=== PATIENT | female | born 1955 | race Caucasian/White ===

== ENCOUNTER 2020-11-01 10:45 | Outpatient (CLI) | payer OTHER, SELFPAY ==
[2020-11-01 11:08] LABS: Basophils Percent Auto 0.7 % (0.2-1.2); Eosinophils Absolute Auto 0.2 K/mm3 (0-0.3); Eosinophils Percent Auto 3.7 % (0-4.4); Hematocrit 40.9 % (37.0-47.0); Hemoglobin 13.2 g/dL (12.0-15.0); Immature Granulocyte Absolute 0.01 K/mm3 (0.00-0.031); Immature Granulocyte Percent A 0.2 % (0-0.5); Lymphocytes Absolute Auto 1.43 K/mm3 (0.9-3.2); Lymphocytes Percent Auto 32.9 % (18.3-44.2); Mean Corpuscular HGB Conc 32.3 g/dl (32-36); Mean Corpuscular Hemoglobin 29.7 pg (26-34); Mean Corpuscular Volume 91.9 fl (80-100); Mean Platelet Volume 10.6 fl (7.4-10.4); Monocytes Absolute Auto 0.4 K/mm3 (0.1-0.6); Monocytes Percent Auto 8.7 % (2.6-8.5); Neutrophils Absolute Auto 2.3 K/mm3 (1.3-6.7); Neutrophils Percent Auto 53.8 % (45.5-73.1); Platelet Count Result 232 k/mm3 (150-375); Red Blood Count 4.45 M/mm3 (4.2-5.4); Red Cell Distribution Width 13.6 % (11.5-14.5); White Blood Count 4.4 K/mm3 (4.5-10.0)
[2020-11-01 11:14] LABS: Alanine Aminotransferase 26 U/L (4-35); Albumin Level 4.5 g/dL (3.5-5.1); Alkaline Phosphatase 82 U/L (38-126); Anion Gap 6 mmol/L (8-16); Aspartate Amino Transferase 38 U/L (14-36); Bilirubin,Total 0.5 mg/dL (0.2-1.3); Blood Urea Nitrogen 13 mg/dL (7-17); Calcium 9.3 mg/dL (8.4-10.2); Carbon Dioxide 28 mmol/L (22-30); Chloride 106 mmol/L (98-107); Estimated Glomerular Filt Rate > 60; Glucose 96 mg/dL (65-105); Potassium 4.2 mmol/L (3.4-5.0); Sodium 140 mmol/L (137-145)
== END 2020-11-01 10:46 | disposition home or self-care (01) ==
LOC: ANHLAB 10:47
PROVIDERS: PCP Family Medicine; Visit Provider Internal Medicine Gastroenterology
DX: R11.0 Nausea (principal)
CPT/HCPCS: 36415; 80053; 85025

== ENCOUNTER 2020-12-31 01:00 | Day surgery (SDC) | payer OTHER, SELFPAY ==
[2020-12-18 14:08] VITALS: BMI 29.3
[2020-12-31 09:06] VITALS: BP 142/58; PULSE 66; RESP 18; TEMP 36.2; O2SAT 96; BMI 29.5
[2020-12-31] MEDS: LACTATED RINGERS 1,000 ML 150 ML IV CONT (09:27)
--- NOTE | 2020-12-31 09:36 | WPDGICN ---
Assessment and Plan Assessment and plan (1) Nausea without vomiting: Code(s): R11.0 - Nausea Status: Acute Assessment and Plan: patient with nausea of uncertain etiology. Differential is broad. Plan is for patient to continue bland diet EGD will be performed further recommendations will be given after endoscopy. Continue trial of omeprazole until this is accomplished further recommendations will be given after endoscopy. GI Consult Note Consult date/time: 12/31/20 09:36 HPI: Reny Bolanos is a 65 year old female Presents for EGD. Patient has a history of nausea intermittently over last several months. No specific aggravating or alleviating factors have been identified. She states that is improved since being seen in the office 2 months ago. She currently is maintained on a bland diet. She does have a distant history of valvular heart disease for which she is on warfarin anticoagulation. Family history is noncontributory. Review of Systems Review of Systems: All systems reviewed & are unremarkable except as noted in HPI and below PMFSH Past Medical History Medical History (Updated 11/01/20 @ 10:24 by Riley Pardo MD) Warfarin anticoagulation Surgical History Surgical History Bioprosthetic aortic valve replacement during current hospitalization Social History Social History (Updated 11/01/20 @ 10:01 by Reny Sagastume CMA) Smoking status: Never smoker Alcohol intake: never Substance use: never Substance use type: does not use Living arrangements: with family Gender identity (if verbalized by the patient): Female Spiritual care concerns: No Meds Home Medications and Allergies Home Medications Medication Instructions Recorded Confirmed Type metoprolol succinate 50 mg PO DAILY 03/03/19 12/31/20 History warfarin [Coumadin] 6 mg PO DAILY 03/03/19 12/18/20 History omeprazole 20 mg capsule,delayed 20 mg PO DAILY 11/01/20 12/18/20 History release cholecalciferol (vitamin D3) 25 mcg PO DAILY 12/18/20 12/18/20 History warfarin 3 mg PO WEEKLY 12/18/20 12/18/20 History Allergies Allergy/AdvReac Type Severity Reaction Status Date / Time Penicillins Allergy Rash Verified 12/31/20 09:04 erythromycin base AdvReac Nausea Verified 12/31/20 09:04 propofol AdvReac Chills Verified 12/31/20 09:04 Vital Signs Vital Signs - 24 hr 12/31/20 09:06 Temperature 97.1 F L Pulse Rate 66 Respiratory Rate 18 Blood Pressure 142/58 H Pulse Oximetry 96 Exam Narrative: Physical exam reveals patient be alert. Vital signs stable. HEENT exam is unremarkable. Patient is anicteric. Lungs are clear to auscultation and percussion. Heart is without murmur or extra sounds. Abdominal exam bowel sounds are present soft nontender with no organomegaly.
--- NOTE | 2020-12-31 10:05 | WPDANESEPPF ---
Anes - Initial Pre Proc Eval Procedure: Operation Date: 12/31/20 10:00 Proposed Procedures p Esophagogastroduodenoscopy - Riley Pardo MD Date/Time: 12/31/20 10:05 Surgeon: Riley Pardo MD Pre Op Diagnosis: nausea r11.0 Patient Data Age: 65 Gender: F Height: 1.52 m Weight: 68.6 kg Last Vital Signs Temp 97.1 F L 12/31/20 09:06 Pulse 66 12/31/20 09:06 Resp 18 12/31/20 09:06 BP 142/58 H 12/31/20 09:06 Pulse Ox 96 12/31/20 09:06 Allergies Allergy/AdvReac Type Severity Reaction Status Date / Time Penicillins Allergy Rash Verified 12/31/20 09:04 erythromycin base AdvReac Nausea Verified 12/31/20 09:04 propofol AdvReac Chills Verified 12/31/20 09:04 Home Medications Medication Instructions Recorded Confirmed Type metoprolol succinate 50 mg PO DAILY 03/03/19 12/31/20 History warfarin [Coumadin] 6 mg PO DAILY 03/03/19 12/18/20 History omeprazole 20 mg capsule,delayed 20 mg PO DAILY 11/01/20 12/18/20 History release cholecalciferol (vitamin D3) 25 mcg PO DAILY 12/18/20 12/18/20 History warfarin 3 mg PO WEEKLY 12/18/20 12/18/20 History Laboratory Tests 12/31/20 09:25 PT 13.0 Seconds Seconds (11.1-14.7) INR 1.0 Patient hx anesthesia problems: none Family hx anesthesia problems: none PMFSH Past Medical History Medical History (Updated 12/31/20 @ 10:06 by Ham Ramsey MD) Arthritis Pacemaker Warfarin anticoagulation Surgical History Surgical History (Updated 12/31/20 @ 10:06 by Ham Ramsey MD) Bioprosthetic aortic valve replacement during current hospitalization S/P AVR (aortic valve replacement) Social History Social History (Updated 11/01/20 @ 10:01 by Reny Sagastume CMA) Smoking status: Never smoker Alcohol intake: never Substance use: never Substance use type: does not use Living arrangements: with family Gender identity (if verbalized by the patient): Female Spiritual care concerns: No Anes - Eval Final PreProcedure Day of Procedure 12/31/20 10:05 Patient weight: overweight Heart: regular rate and rhythm Lungs: clear to auscultation Airway: Mallampati scale class III Neurological: alert and oriented Last oral intake: >/= 8 hours ASA classification: III Emergent: no Anesthetic plan: proceed Anesthesia type and monitoring: general GIVS and standard monitoring Informed Consent: The patient's anesthetic plan and its attendant risks and benefits were discussed with the patient/family/POA. Questions were solicited and answers provided to the satisfaction of the patient/family/POA.
[2020-12-31 10:32] VITALS: BP 101/48; PULSE 65; RESP 17; O2SAT 100
[2020-12-31 10:42] VITALS: BP 115/49; PULSE 66; RESP 17; O2SAT 100
[2020-12-31 10:52] VITALS: BP 126/98; PULSE 69; RESP 22; O2SAT 100
== END 2020-12-31 11:04 | disposition home or self-care (01) ==
PROVIDERS: PCP Family Medicine; Visit Provider Internal Medicine Gastroenterology
PROC: 0DJ08ZZ Inspection of Upper Intestinal Tract, Via Natural or Artificial Opening Endoscopic (ICD-10-PCS; CPT 43235; principal; 2020-12-31 10:00)
DX: R11.0 Nausea (principal); Z79.01 Long term (current) use of anticoagulants; M19.90 Unspecified osteoarthritis, unspecified site; Z95.0 Presence of cardiac pacemaker; Z95.2 Presence of prosthetic heart valve
CPT/HCPCS: 43239; 36415; 85610; 87081; J2704; J3370; J7120

== ENCOUNTER 2021-03-03 08:02 | Outpatient (CLI) | payer OTHER, SELFPAY ==
--- NOTE | ~2021-03-03 | NM_ITS ---
EXAMINATION: NM hepatobiliary wo pharm EXAM DATE: 03/03/2021 13:56 INDICATION: RUQ pain TECHNIQUE: 4.5 mCi Tc-99m mebrofenin (Choletec) was administered intravenously. Scintigraphic images of the abdomen were obtained for one hour. To obtained gallbladder ejection fraction, patient drank 8 ounces of Ensure and imaging of the gallbladder obtained for one hour following ingestion. Gallbl adder ejection fraction was calculated by the technologist. There is no prior study for comparison. FINDINGS: There is normal clearance of radiotracer from the blood pool. There is homogeneous tracer u ptake by the liver. Activity progresses to the gallbladder and bowel. The gallbladder ejection fract ion (GBEF) is 74% (most patients with gallbladder dysfunction have GBEF < 35%, but there is slight ov erlap with the normal range of 33-90% using this protocol).] IMPRESSION: Gallbladder ejection fraction 74%, within normal range. Reviewed, dictated and finalized at location A.
== END 2021-03-03 08:03 | disposition home or self-care (01) ==
PROVIDERS: PCP Family Medicine; Visit Provider Family Medicine
DX: R10.11 Right upper quadrant pain (principal)
CPT/HCPCS: 78226; A9537

== ENCOUNTER 2022-02-18 13:07 | Outpatient (CLI) | payer OTHER, SELFPAY ==
--- NOTE | ~2022-02-18 | XR_ITS ---
EXAMINATION: XR lumbar spine min 4V DATE: 02/18/2022 13:39 INDICATION: Low back pain TECHNIQUE: Anteroposterior, lateral, and bilateral oblique views of the lumbar spine, and cone-down l ateral view of the lumbosacral junction were obtained. COMPARISON: None. FINDINGS: There are 3 mm of anterolisthesis of L4 on L5 and 2 mm of retrolisthesis of L5 on S1. There is moderate loss of intervertebral disc space height at L4-5 and mild loss of disc space height thro ughout the remainder of the lumbar spine. The vertebral body heights are maintained. Small degenerati ve osteophytes project from the anterior endplates of multiple vertebral bodies. There is moderate to severe facet joint osteoarthritis in the lower lumbar spine. IMPRESSION: 1. Mild to moderate lumbar spondylosis without acute findings. Reviewed, dictated and finalized at location A.
--- NOTE | ~2022-02-18 | XR_ITS ---
EXAMINATION: XR hip RT min 2V DATE: 02/18/2022 13:39 INDICATION: Right groin pain TECHNIQUE: Two views of right hip were obtained. COMPARISON: None. FINDINGS: Bone alignment is normal. There is no fracture. The soft tissues are unremarkable. IMPRESSION: 1. No acute osseous abnormality. Reviewed, dictated and finalized at location A.
== END 2022-02-18 13:08 | disposition home or self-care (01) ==
PROVIDERS: PCP Family Medicine; Visit Provider Chiropractor
DX: M54.50 Low back pain, unspecified (principal); M47.816 Spondylosis without myelopathy or radiculopathy, lumbar region
CPT/HCPCS: 72110; 73502

== ENCOUNTER → 2022-07-29 11:12 | Outpatient (CLI) | payer OTHER, SELFPAY ==
--- NOTE | ~2022-07-29 | MMUS_ITS ---
EXAMINATION: MM diagnostic jillian BI w ana laura, US axilla LT HISTORY: Palpable left breast abnormality. TECHNIQUE: Additional 3-D tomosynthesis images of the breasts were performed and synthetic 2-D images were generated. CAD analysis was submitted and interpreted. High resolution left axillary ultrasound was performed. COMPARISON: 07/29/2022 BREAST PARENCHYMAL COMPOSITION: Breast composition is almost entirely fatty FINDINGS: MAMMOGRAPHIC FINDINGS: There are no suspicious masses, calcifications or architectural distortion in either breast to sugges t malignancy. ULTRASOUND: Left axillary ultrasound: In the area of palpable concern near the axilla there is a normal-appearing 9 mm intramammary lymph node with normal echogenic hilum. No suspicious masses to suggest malignancy . IMPRESSION: 1. No evidence for malignancy in either breast. Benign finding. 2. Routine yearly screening mammogram and regular clinical breast examination are recommended. BI-RADS Category 2: Benign finding(s). Reviewed, dictated and finalized at location A. IMPRESSION: 1. No evidence for malignancy in either breast. Benign finding. 2. Routine yearly screening mammogram and regular clinical breast examination a re recommended. BI-RADS Category 2: Benign finding(s).
== END ==
PROVIDERS: PCP Internal Medicine; Visit Provider Nurse Practitioner
DX: R22.30 Localized swelling, mass and lump, unspecified upper limb (principal)
CPT/HCPCS: 76882; 77062; 77066; G0279

== ENCOUNTER 2022-10-30 00:13 | Day surgery (SDC) | payer OTHER, SELFPAY ==
[2022-10-29 15:00] VITALS: BMI 29.2
[2022-10-30] VITALS (8 sets, daily range): BP systolic 92–113; BP diastolic 53–66; PULSE 60–66; RESP 13–18; TEMP 36.7; O2SAT 95–100; BMI 28.8
[2022-10-30 07:52] LABS: Basophils Absolute Auto 0.1 K/mm3 (0.0-0.1); Basophils Percent Auto 1.1 % (0.2-1.2); Eosinophils Absolute Auto 0.2 K/mm3 (0-0.3); Eosinophils Percent Auto 3.9 % (0-4.4); Hematocrit 40.7 % (37.0-47.0); Hemoglobin 13.4 g/dL (12.0-15.0); Immature Granulocyte Absolute 0.01 K/mm3 (0.00-0.031); Immature Granulocyte Percent A 0.2 % (0-0.5); Lymphocytes Absolute Auto 1.38 K/mm3 (0.9-3.2); Lymphocytes Percent Auto 29.6 % (18.3-44.2); Mean Corpuscular HGB Conc 32.9 g/dl (32-36); Mean Corpuscular Hemoglobin 30.4 pg (26-34); Mean Corpuscular Volume 92.3 fl (80-100); Mean Platelet Volume 10.3 fl (7.4-10.4); Monocytes Absolute Auto 0.5 K/mm3 (0.1-0.6); Monocytes Percent Auto 10.9 % (2.6-8.5); Neutrophils Absolute Auto 2.5 K/mm3 (1.3-6.7); Neutrophils Percent Auto 54.3 % (45.5-73.1); Platelet Count Result 218 k/mm3 (150-375); Red Blood Count 4.41 M/mm3 (4.2-5.4); Red Cell Distribution Width 13.6 % (11.5-14.5); White Blood Count 4.7 K/mm3 (4.5-10.0)
[2022-10-30 08:02] LABS: Prothrombin Time 13.2 Seconds (11.1-14.7)
[2022-10-30 08:03] LABS: Anion Gap 3 mmol/L (8-16); Blood Urea Nitrogen 18 mg/dL (7-17); Carbon Dioxide 31 mmol/L (22-30); Chloride 105 mmol/L (98-107); Estimated CRCL calculation 46 ml/min; Estimated Glomerular Filt Rate > 60; Glucose 96 mg/dL (65-110); Potassium 3.8 mmol/L (3.4-5.0); Sodium 139 mmol/L (137-145)
--- NOTE | 2022-10-30 09:32 | WPDMODSED ---
Moderate Sedation Note-Pt Data Patient Data Diagnosis: Sick sinus syndrome, permanent pacemaker at [facility] previous aortic valve replacement Present Complaint: no complaints Procedure to be performed/Plan: pacemaker generator change Allergies Allergy/AdvReac Type Severity Reaction Status Date / Time Penicillins Allergy Rash Verified 10/29/22 15:19 codeine AdvReac Hallucinati Verified 10/29/22 15:19 [From Tylenol-Codeine #3] ng erythromycin base AdvReac Nausea Verified 10/29/22 15:19 oxycodone [From Percocet] AdvReac Hallucinati Verified 10/29/22 15:19 ng propofol AdvReac Chills Verified 10/29/22 15:19 MOST PAIN MEDS Allergy Hallucinati Uncoded 10/29/22 15:19 ng Home Medications Medication Instructions Recorded Confirmed Type metoprolol succinate 50 mg 50 mg PO DAILY 03/03/19 10/29/22 History tablet,extended release 24 hr warfarin 6 mg tablet (Coumadin) 6 mg PO DAILY 03/03/19 10/29/22 History cholecalciferol (vitamin D3) 25 25 mcg PO DAILY 12/18/20 10/29/22 History mcg (1,000 unit) capsule warfarin 3 mg tablet 3 mg PO WEEKLY 12/18/20 10/29/22 History atorvastatin 40 mg tablet 40 mg PO QHS 06/30/22 10/29/22 History Sedation/Anesthesia: No previous sedation/anesthesia problems (including family history). [facility] Past Medical History Medical History (Updated 07/17/22 @ 09:05 by Vidya Galeano NP) Arthritis Pacemaker Warfarin anticoagulation Surgical History Surgical History (System 07/01/22 @ 10:20 by mOa Martinez) Bioprosthetic aortic valve replacement during current hospitalization S/P AVR (aortic valve replacement) Social History Social History (System 07/01/22 @ 10:20 by Oma Martinez) Smoking status: Never smoker Second hand tobacco smoke exposure: No Alcohol intake: never Substance use: never Substance use type: does not use Lack of Transportation: No Lack of Food: Never True Current Housing: I Have Housing Concerned About Future Housing: No Difficulty Paying Gas/Electric Bills: No Difficulty Paying for Meds: No Currently Unemployed: No Education: High School Diploma/GED Difficulty w/ Childcare or Family Care: No Living arrangements: with family Gender identity (if verbalized by the patient): Female Spiritual care concerns: No Mod Sed Physical Exam Physical Exam Pre Procedural Exam: Normal: Appearance, Neck, Throat, Airway, Lungs, Heart Size, Heart Rate, Heart Rhythm, Neuro Exam and Extremities Hours since solid foods: 12 Hours since liquid intake: 12 Mallampati Classification: class II Internal Medicine - PN: Obj Da Vital Signs Vital Signs: Vital Signs - 24 hr 10/30/22 07:45 Temperature 36.7 C Pulse Rate 64 Respiratory Rate 16 Blood Pressure 113/58 L Pulse Oximetry 97 Oxygen Delivery Room Air Labs 10/30/22 07:44 10/30/22 07:44 Labs: Laboratory Results - last 24 hr 10/30/22 07:44 WBC 4.7 RBC 4.41 Hgb 13.4 Hct 40.7 MCV 92.3 MCH 30.4 MCHC 32.9 RDW 13.6 Plt Count 218 MPV 10.3 Immature Gran % (Auto) 0.2 Neut % (Auto) 54.3 Lymph % (Auto) 29.6 Weld % (Auto) 10.9 H Eos % (Auto) 3.9 Baso % (Auto) 1.1 Lymph # (Auto) 1.38 Weld # (Auto) 0.5 Eos # (Auto) 0.2 Baso # (Auto) 0.1 Abs Immat Gran (auto) 0.01 Absolute Neuts (auto) 2.5 Absolute Nucleated RBC 0.0 Nucleated RBC % 0.0 PT 13.2 INR 1.0 Sodium 139 Potassium 3.8 Chloride 105 Carbon Dioxide 31 H Anion Gap 3 L BUN 18 H Creatinine 0.90 Estim Creat Clear Calc 46 Estimated GFR > 60 Glucose 96 Calcium 9.0 ASA Classification/Sedation ASA Classification/Sedation ASA Class: II Emergent: No Risks: Risks, benefits and alternatives explained and patient/family accepted plan for sedation. Patient re-evaluated immediately prior to sedation.
--- NOTE | 2022-10-30 10:38 | WPDCARDPROC ---
Cardiac Cath Procedure Note Date of procedure:: 10/30/22 Performing physician:: Chinmay Isbell MD Indication:: sick sinus syndrome with permanent pacemaker at [facility] Brief clinical history:: this is a 67-year-old patient who has had previous aortic valve replacement and pacemaker implantation for sick sinus syndrome. Her device is known to be at [facility] and she is brought in as an outpatient for generator change. Procedure Procedure performed:: Explant of depleted pacemaker pulse generator implant new dual-chamber pulse generator Sedation/Medication given:: fentanyl 50 mg Versed 2 mg Access site:: chronically implanted pacemaker site in the left anterior chest wall Estimated blood loss:: minimal Procedure note:: patient was brought to the cardiac catheterization lab in the postabsorptive stable the left anterior chest wall was prepped and draped in the sterile fashion. The pacemaker pocket was easily identified in the left subclavian fossa. The 1% lidocaine was then injected over the pocket for local anesthesia. An incision was then made using the PlasmaBlade over the palpable pocket/device. Sharp and blunt dissection was used to separate the subcutaneous tissue and identify the fibrous capsule over the pacemaker generator. Electrocautery was used to provide cutaneous hemostasis. The PlasmaBlade was used to open the capsule and then the Metzenbaum scissors to open the rest of the capsule over the general is generator was then removed from the pocket with a chronically implanted leads and was visually intact. The torque wrench was used to remove the atrial lead from the device. There was difficulty removing the ventricular lead as the set screw was stripped at the time of the previous implant. I had to manually remove the silicone ring over the set screw, flushed the area out use the torque wrench and then manually bend this at a 90 degree angle to get enough torque to retract the set screw and the ventricular lead was then removed. The lead was then inspected and was visually unremarkable in appearance. The leads were then connected to the new pacemaker generator detailed below and the pocket was and irrigated with vancomycin infused saline. Following this the device and the leads were placed back into the pocket which was then closed in layers using 3-0 Vicryl in an interrupted fashion with subcutaneous tissue and 4-0 Vicryl in a running subcuticular fashion for the skin. The area was cleansed and an Aquacel dressing was placed. She was taken to the holding area in stable condition. Other than the difficulty removing the ventricular lead From the depleted generator the procedure was uncomplicated. the patient was taken to the holding area for recovery there were no apparent procedural complications. Findings:: The depleted generator is a have a dual-chamber pacemaker model 2210, serial number [id number]. Originally implanted September 15, 2012. The new pacemaker pulse generator is a Martinez dual-chamber device model Assurity MRI 2272, serial number [id number]. Device is programmed the DDD mode with lower rate limit 60 upper rate limit 130 av delay 250/200 milliseconds. The chronically implanted atrial is a [employer] Tenfril STS 2088TC 46cm, serial number [id number]. P waves are sensed at 0.7 mV threshold 0.5 volts at 0.5 milliseconds impedance 440 Ohms. Chronically implanted ventricular is a [employer] Tendril STS 2088TC 52cm, serial number [id number]. R-waves are sensed at 9 point mV threshold 0.75 volts at 0.4 millisecond pacing impedance 630 Ohms. Conclusion:: 1. Successful uncomplicated explantation of depleted pacemaker pulse generator 2. challenge in removing the ventricular lead from the depleted generator as the set screw was stripped. 3. Successful it implantation of new dual-chamber pulse maker using the chronically implanted leads for ongoing treatment of sick sinus syndrome in this 67-year
--- NOTE | 2022-11-30 08:42 | PM.IMHP ---
H&P: HPI History of Present Illness Date/Time: 10/30/22 08:42 Chief Complaint: No complaint Narrative: This is a 67-year-old woman who has a chronically implanted pacemaker for treatment of sick sinus syndrome. She is followed by my partner, Dr. Newton. Her pacemaker device is functioning normally but was found on routine follow-up to be at [facility] and in need for generator change. She is admitted this morning as an outpatient for elective pacemaker generator change. She received her original implant back in 2013 for treatment of sick sinus syndrome. She had a very unusual complication of that implant with the right ventricular lead traversing patent foramen ovale and ending up in the left ventricle. When this was identified she was referred to the physician at [facility] for lead revision. Since then the current device has been functioning well and has been doing fine. She has also history of paroxysmal supraventricular tachycardia and a bicuspid aortic valve which was stenotic and replaced with mechanical [employer] valve number 21 valve in the remote past as well. Of course her Coumadin for systemic anticoagulation has been held prior to this procedure today. Review of Systems Constitutional: Constitutional: Reports no additional constitutional complaints Eyes: Eyes: Reports no additional eye complaints ENT: Reports system reviewed and no additional complaints, except as documented Cardiovascular: Cardiovascular: Reports no additional cardiovascular complaints Respiratory: Respiratory: Reports no additional respiratory complaints Gastrointestinal: Gastrointestinal: Reports no additional gastrointestinal complaints Musculoskeletal: Musculoskeletal: Reports no additional musculoskeletal complaints Integumentary/Breasts: Skin/Breast: Reports system reviewed and no additional complaints, except as docu Neurologic: Reports system reviewed and no additional complaints, except as documented Psychiatric: Comments: Reports some anxiety related to upcoming procedure [facility] Past Medical History Medical History (Updated 11/30/22 @ 08:51 by Chinmay Isbell MD) Arthritis Pacemaker Warfarin anticoagulation Surgical History Surgical History (System 07/01/22 @ 10:20 by Oma Martinez) Bioprosthetic aortic valve replacement during current hospitalization S/P AVR (aortic valve replacement) Social History Social History (System 07/01/22 @ 10:20 by Oma Martinez) Smoking status: Never smoker Second hand tobacco smoke exposure: No Alcohol intake: never Substance use: never Substance use type: does not use Lack of Transportation: No Lack of Food: Never True Current Housing: I Have Housing Concerned About Future Housing: No Difficulty Paying Gas/Electric Bills: No Difficulty Paying for Meds: No Currently Unemployed: No Education: High School Diploma/GED Difficulty w/ Childcare or Family Care: No Living arrangements: with family Gender identity (if verbalized by the patient): Female Spiritual care concerns: No Meds Home Medications and Allergies Home Medications Medication Instructions Recorded Confirmed Type metoprolol succinate 50 mg 50 mg PO DAILY 03/03/19 10/29/22 History tablet,extended release 24 hr warfarin 6 mg tablet (Coumadin) 6 mg PO DAILY 03/03/19 10/29/22 History cholecalciferol (vitamin D3) 25 25 mcg PO DAILY 12/18/20 10/29/22 History mcg (1,000 unit) capsule warfarin 3 mg tablet 3 mg PO WEEKLY 12/18/20 10/29/22 History atorvastatin 40 mg tablet 40 mg PO QHS 06/30/22 10/29/22 History sulfamethoxazole 800 1 tablet PO Q12H #5 tabs 10/30/22 Rx mg-trimethoprim 160 mg tablet (Bactrim DS) Allergies Allergy/AdvReac Type Severity Reaction Status Date / Time Penicillins Allergy Rash Verified 10/29/22 15:19 codeine AdvReac Hallucinati Verified 10/29/22 15:19 [From Tylenol-Codeine #3] ng erythromycin base AdvReac Nausea Verified
== END 2022-10-30 12:40 | disposition home or self-care (01) ==
PROVIDERS: PCP Internal Medicine; Visit Provider Specialist
PROC: 0JPT0PZ Removal of Cardiac Rhythm Related Device from Trunk Subcutaneous Tissue and Fascia, Open Approach (ICD-10-PCS; CPT 33228; principal; 2022-10-30 09:00)
DX: Z45.010 Encounter for checking and testing of cardiac pacemaker pulse generator [battery] (principal); Z79.01 Long term (current) use of anticoagulants; Z95.2 Presence of prosthetic heart valve
CPT/HCPCS: 33228; 36415; 80048; 85025; 85610; C1785; J2250; J3010; J3370; J7040

== ENCOUNTER 2023-05-17 08:56 | Emergency (ER) | payer OTHER, SELFPAY ==
[2023-05-17 09:03] VITALS: BP 112/62; PULSE 90; RESP 16; TEMP 36.8; O2SAT 96
--- NOTE | 2023-05-17 09:06 | ED.URI ---
HPI - URI/Sore Throat General Chief Complaint: Upper Respiratory Infection Stated Complaint: Cough Time Seen by Provider: 05/17/23 09:06 Source: patient, RN notes reviewed and old records reviewed Mode of arrival: ambulatory Limitations: no limitations History of Present Illness HPI Narrative: 68 year old female presents to [facility] with complaints of 5 day history of persistent dry cough with sinus congestion and drainage, sinus and ear pressure. Patient reports no fevers, chills or sweats or any body aches. Patient reports that the cough has been continuous and non productive. Patient reports that she has taken some Tylenol but no decongestants or cough medication, did use some Vicks VapoRub last night which she feels helped some. Patient has had aortic valve replacement and is on Coumadin daily. MD elicited complaint: cough, rhinorrhea and nasal congestion Onset (ago): day(s) (5) Able to tolerate fluids by mouth: Yes Treatments prior to arrival: acetaminophen and other (Vicks VapoRub) Related Data Home Medications Medication Instructions Recorded Confirmed metoprolol succinate 50 mg 50 mg PO DAILY 03/03/19 05/17/23 tablet,extended release 24 hr warfarin 6 mg tablet (Coumadin) 6 mg PO DAILY 03/03/19 05/17/23 cholecalciferol (vitamin D3) 25 25 mcg PO DAILY 12/18/20 05/17/23 mcg (1,000 unit) capsule warfarin 3 mg tablet 3 mg PO WEEKLY 12/18/20 05/17/23 atorvastatin 40 mg tablet 40 mg PO QHS 06/30/22 05/17/23 Allergies Allergy/AdvReac Type Severity Reaction Status Date / Time Penicillins Allergy Rash Verified 05/17/23 09:04 codeine AdvReac Hallucinati Verified 05/17/23 09:04 [From Tylenol-Codeine #3] ng erythromycin base AdvReac Nausea Verified 05/17/23 09:04 oxycodone [From Percocet] AdvReac Hallucinati Verified 05/17/23 09:04 ng propofol AdvReac Chills Verified 05/17/23 09:04 MOST PAIN MEDS Allergy Hallucinati Uncoded 05/17/23 09:04 ng Review of Systems Review of Systems: CONSTITUTIONAL: Denies malaise, chills, sweats, or fever. EYES: Denies visual changes, redness, or discharge. ENT: Reports rhinorrhea, congestion, sinus pain, otalgia pressure and denies any sore throat. CARDIOVASCULAR: Denies chest pain, palpitations, or edema. RESPIRATORY: Reports cough.? Denies dyspnea. GASTROINTESTINAL: Denies abdominal pain, nausea, vomiting, diarrhea SKIN: Denies rash or itching. MUSCULOSKELETAL: Denies myalgia. NEUROLOGIC: Denies headache. All systems reviewed & are unremarkable except as noted in HPI and below PMFSH Past Medical History Medical History Arthritis Pacemaker Warfarin anticoagulation Surgical History Surgical History Bioprosthetic aortic valve replacement during current hospitalization S/P AVR (aortic valve replacement) Family History Family History (Updated 05/17/23 @ 09:44 by Alma Joy NP) Father Hypertension Sibling Hypertension FHx: cerebral aneurysm Mother Hypertension Arthritis Social History Social History Smoking status: Never smoker Second hand tobacco smoke exposure: No Alcohol intake: never Substance use: never Substance use type: does not use Lack of Transportation: No Lack of Food: Never True Current Housing: I Have Housing Concerned About Future Housing: No Difficulty Paying Gas/Electric Bills: No Difficulty Paying for Meds: No Currently Unemployed: No Education: High School Diploma/GED Difficulty w/ Childcare or Family Care: No Living arrangements: with family Gender identity (if verbalized by the patient): Female Spiritual care concerns: No Comments At time of signature, agree with nursing past medical, surgical, social and family history. There is no relevant family history pertinent to the presenting complaint Ex
== END 2023-05-17 09:30 | disposition home or self-care (01) ==
PROVIDERS: Emergency Provider Registered Nurse; PCP Nurse Practitioner
DX: J06.9 Acute upper respiratory infection, unspecified (principal); R05.1 Acute cough; M19.90 Unspecified osteoarthritis, unspecified site; Z95.0 Presence of cardiac pacemaker; Z79.01 Long term (current) use of anticoagulants; Z95.2 Presence of prosthetic heart valve
CPT/HCPCS: 99213; G0463

== ENCOUNTER → 2023-05-19 15:00 | Outpatient (CLI) | payer OTHER, SELFPAY ==
--- NOTE | ~2023-05-19 | XR_ITS ---
XR chest 2V DATE: 05/19/2023 15:11 INDICATION: Cough. Bronchitis. TECHNIQUE: PA and lateral views COMPARISON: 05/21/2011 two-view chest FINDINGS: Status post sternotomy and aortic valve replacement. Left-sided dual-lead pacemaker device with leads overlying right atrium and right ventricle. Heart size is within normal limits. No hilar or mediastinal enlargement. Moderate bilateral pulmonary hyperinflation. No pulmonary infiltrate or consolidation, pleural effusi on or pulmonary vascular congestion or pneumothorax is detected. Diffuse osteopenia. IMPRESSION: Status post sternotomy and aortic valve replacement Left dual-lead pacemaker Moderate bilateral hyperinflation; no active cardiopulmonary disease Reviewed, dictated and finalized at location B. T PROPAGATOR
== END ==
PROVIDERS: PCP Nurse Practitioner; Visit Provider Nurse Practitioner
DX: J40 Bronchitis, not specified as acute or chronic (principal); R91.8 Other nonspecific abnormal finding of lung field; Z95.0 Presence of cardiac pacemaker; Z98.890 Other specified postprocedural states
CPT/HCPCS: 71046

== ENCOUNTER 2024-03-21 12:10 | Outpatient (CLI) | payer OTHER, SELFPAY ==
--- NOTE | ~2024-03-21 | MM_ITS ---
EXAMINATION: MM screening jillian BI w ana laura HISTORY: Screening mammogram TECHNIQUE: Craniocaudal and mediolateral oblique 3-D tomosynthesis images were obtained and synthetic 2-D images were generated. CAD analysis was submitted and interpreted. COMPARISON: 07/29/2022 BREAST PARENCHYMAL COMPOSITION:Not Dense. The breasts are almost entirely fatty FINDINGS: No suspicious mass, calcification, or architectural distortion are identified in either kika ast to suggest malignancy. There has been no suspicious interval change. IMPRESSION: No mammographic evidence of malignancy. Recommend routine screening mammography in one year. BI-RADS Category 1: Negative Reviewed, dictated and finalized at location . NTIFIC INFORMATICS ANALYST
== END 2024-03-21 12:11 | disposition home or self-care (01) ==
PROVIDERS: PCP Nurse Practitioner; Visit Provider Nurse Practitioner
DX: Z12.31 Encounter for screening mammogram for malignant neoplasm of breast (principal)
CPT/HCPCS: 77063; 77067

== ENCOUNTER 2024-03-23 09:20 | Emergency (ER) | payer OTHER, SELFPAY ==
[2024-03-23 10:34] VITALS: BP 138/65; PULSE 67; RESP 16; TEMP 36.5; O2SAT 98
[2024-03-23 10:35] VITALS: BP 139/60; PULSE 65
[2024-03-23 10:36] VITALS: BP 125/64; BP 140/64; PULSE 63; PULSE 64
--- NOTE | 2024-03-23 11:00 | ED_ITS ---
HPI - Dizziness General Chief Complaint: Dizziness Stated Complaint: dizziness Time Seen by Provider: 03/23/24 10:50 Source: patient, family, RN notes reviewed and old records reviewed Mode of arrival: ambulatory Limitations: no limitations History of Present Illness HPI Narrative: 69 year old female accompanied by spouse presents to express care with complaints of severe episode of vertigo when she was sitting in the bed this morning watching TV and thought she was going to fall out of bed.. Patient reports that she became nauseated but had no emesis and states that she still feels a little nauseated. 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 Patient reports that she is on blood thinners daily (Coumadin)denies any recent falls. Patient denies any s hortness of breath or any chest pain at this time. moves all extremities on own power, no drift, face is symmetrical with no nystagmus noted MD elicited complaint: vertigo and other (nausea) Pertinent past history: pacemaker and other (aortic valve replacement ) Onset (ago): hour(s) (0630 today) Severity: moderate Description: room spinning and other (nausea, felt like she was going to fall out of bed) Associated symptoms: nausea Associated neuro symptoms: other (none) Related Data Home Medications Medication Instructions Recorded Confirmed metoprolol succinate 50 mg 50 mg PO DAILY 03/03/19 03/23/24 tablet,extended release 24 hr warfarin 6 mg tablet (Coumadin) 6 mg PO DAILY 03/03/19 03/23/24 cholecalciferol (vitamin D3) 25 25 mcg PO DAILY 12/18/20 03/23/24 mcg (1,000 unit) capsule atorvastatin 40 mg tablet 40 mg PO QHS 06/30/22 03/23/24 Allergies Allergy/AdvReac Type Severity Reaction Status Date / Time Penicillins Allergy Rash Verified 03/23/24 10:30 codeine AdvReac Hallucinati Verified 03/23/24 10:30 [From Tylenol-Codeine #3] ng erythromycin base AdvReac Nausea Verified 03/23/24 10:30 oxycodone [From Percocet] AdvReac Hallucinati Verified 03/23/24 10:30 ng propofol AdvReac Chills Verified 03/23/24 10:30 MOST PAIN MEDS Allergy Hallucinati Uncoded 03/23/24 10:30 ng Review of Systems Review of Systems: CONSTITUTIONAL: Denies fever, chills, or sweats. EYES: Denies visual changes, redness, or discharge. ENT: Denies rhinorrhea, congestion, sore throat, or otalgia. CARDIOVASCULAR: Denies chest pain, palpitations, or edema. RESPIRATORY: Denies cough or dyspnea. GASTROINTESTINAL: Denies abdominal pain,positive for nausea, no vomiting, or diarrhea. GENITOURINARY: Denies dysuria or hematuria. SKIN: Denies rash or itching. MUSCULOSKELETAL: Denies back pain, joint pain, or myalgia. NEUROLOGIC: Denies headache, numbness, or weakness.reports vertigo this morning associated with nausea PSYCHIATRIC: Denies anxiety or depression. All systems reviewed & are unremarkable except as noted in HPI and below PMFSH Past Medical History Medical History Arthritis Pacemaker Warfarin anticoagulation Surgical History Surgical History Bioprosthetic aortic valve replacement during current hospitalization S/P AVR (aortic valve replacement) Family History Family History Father Hypertension Sibling Hypertension FHx: cerebral aneurysm Mother Hypertension Arthritis Social History Social History Smoking status: Never smoker Second hand tobacco smoke exposure: No Alcohol intake: never Substance use: never Substance use type: does not use Do You Feel Safe in your Home?: Yes Living arrangements: with family Gender identity (if verbalized by the patient): Female Spiritual care concerns: No Comments At time of signature, agree with nursing past medical, surgical, social and family history. There is no relevant family history pertinent to the presenting complaint Exam Narrative: GENERAL: Well-appearing, well-nourished, and in no acute distress. HEAD: Normocephalic, atraumatic. EYES: PERRLA and EOMI.no nystagmus ENT: Nares clear, no rhinorrhea or epistaxis. Mucous membranes moist. NECK: Supple.no lymphadenopathy CHEST: Clear to auscultation. No respiratory distress.SAO2 98% on room air HEART: Regular rate and rhythm. aortic valve replacement. Normal peripheral pulses. ABDOMEN: Soft, nontender, nondistended, normal active bowel sounds.states intermittent nausea EXTREMITIES: Normal range of motion. No edema. SKIN: Warm, dry, no rash. NEURO: No focal deficits. Alert and oriented x3.MAEW without drift, face symmetrical, cranial nerves intact without deficit. , Course Course Emergency Course: Patient is aware of diagnosis, understands and agrees to treatment plan.? Anticipatory guidance given.? Patient agrees to follow-up as directed and is aware of reasons to seek care at the emergency department. Portions of this record may have been created with voice recognition software Level of Care: Express Care Visit Vital Signs Vital signs: Vital Signs Temperature 36.5 C 03/23/24 10:34 Pulse Rate 67 03/23/24 10:34 Respiratory Rate 16 03/23/24 10:34 Blood Pressure 138/65 03/23/24 10:34 Pulse Oximetry 98 03/23/24 10:34 Temperature 36.5 C 03/23/24 10:34 Pulse Rate 63 03/23/24 10:36 Respiratory Rate 16 03/23/24 10:34 Blood Pressure 125/64 03/23/24 10:36 Pulse Oximetry 98 03/23/24 10:34 Reviewed Transfer Transfered to: [facility] Transportation: Other (private car with spouse) Transfer rationale: vertigo with nausea, history of coumadin therapy, aortic valve replacement and pacemaker needs higher level of care for further evaluation Accepting physician: Dr Barr [facility] - Dizziness MDM Narrative Medical decision making narrative: [id number] Call placed to [facility] and condition update, [facility], and present vital signs reviewed with Dr Barr with Dr Barr aggreeable to accept patient for transfer. Differential Diagnosis Differential diagnosis: Likely benign paroxysmal positional vertigo, vertebral basilar insufficiency, transient cerebral ischemia and other (CAD) Medical Records Attestation: I reviewed the patient's medical records. Critical Care Time Critical Care Time Critical Care Time: No Discharge Plan Discharge Clinical Impression: Nausea alone Benign paroxysmal positional vertigo Qualifiers: Laterality: unspecified laterality Qualified Code(s): H81.10 - Benign paroxysmal vertigo, unspecified ear Patient Disposition: Acute Care Hospital Condition: Stable Prescriptions: No Action atorvastatin 40 mg tablet 40 mg PO QHS metoprolol succinate 50 mg Tablet Extended Release 24 Hr 50 mg PO DAILY Patient Comments: Pt will take AFTER the procedure per Dr Ramsey warfarin [Coumadin] 6 mg Tablet 6 mg PO DAILY Hold Instructions: Resume on 11/02/22. Rx Instructions: daily except Sundays cholecalciferol (vitamin D3) 25 mcg (1,000 unit) Capsule 25 mcg PO DAILY Follow-up/Referrals: Vidya Galeano, BASIC ACOUSTIC ANALYST [Primary Care Provider] - Time of Disposition: 11:18 Quality [place] Coma Scale Eyes: Open Verbal: Oriented and Alert Motor: Follows Commands [place] Coma Total Score: 15
== END 2024-03-23 11:17 | disposition short-term general hospital (02) ==
PROVIDERS: Emergency Provider Registered Nurse; PCP Nurse Practitioner
DX: R11.0 Nausea (principal); H81.10 Benign paroxysmal vertigo, unspecified ear; M19.90 Unspecified osteoarthritis, unspecified site; Z95.0 Presence of cardiac pacemaker; Z95.2 Presence of prosthetic heart valve; Z79.01 Long term (current) use of anticoagulants
CPT/HCPCS: 99213; G0463

== ENCOUNTER 2024-03-23 11:31 | Emergency (ER) | payer OTHER, SELFPAY ==
--- NOTE | ~2024-03-23 | CT_ITS ---
EXAMINATION: CTA BRAIN/CAROTID DATE: 03/23/2024 16:34 INDICATION: Vertigo TECHNIQUE: Computed tomographic angiography (CTA) of the head and neck was performed with 100 mL Omni paque-350 intravenous contrast. Multiplanar reconstructions and maximum intensity projection 3D-recon structions of the carotid arteries and of the intracranial arteries were created by the technologist on a separate workstation. Precontrast CT of the head was also obtained. Automated exposure control and iterative reconstruction technique were employed.The dose-length product was 1592.10 mGy-cm. COMPARISON: 03/14/2019 FINDINGS: Carotid arteries: The visualized distal portion of the ascending thoracic aorta is ectatic measuring up to 3.7 x 3.5 cm at the caudal-most images. There is no evident atherosclerotic plaque with 0% stenosis of the right and left carotid bulbs relative to normal distal artery lumen diameter (NASCET criteria). The bilater al vertebral arteries are codominant with no evident stenosis. Small calcified nodule right apex cons istent with old granulomatous disease. There are round glass opacities in the visualized upper lungs which could be due to atelectasis with expiratory phase of imaging or mild pulmonary edema. There is a likely significant stenosis at the left brachiocephalic vein with dense contrast extending retrogra de through the left internal mammary vein, the left internal jugular vein, the left superior intercos wero vein and multiple chest wall and paraspinal collaterals. Moderate cervical spondylosis. Head: No acute intracranial hemorrhage, acute infarction or abnormal extra axial fluid collection. Ventricl es are normal and symmetric. No mass/mass effect. The orbits and mastoid air cells are normal. No abn ormally enhancing brain lesions on postcontrast imaging. There is mild mucosal thickening the bilater al maxillary sinuses. Intracranial arteries Vertebral arteries are codominant. Minimal atherosclerotic plaque at the left carotid siphon with no hemodialysis stenosis. There is no hemodynamically significant stenosis in the vertebral, basilar and internal carotid arteries. There are no aneurysms identified. Both A1 and P1 segments are patent. T here are also patent anterior 2 thinning artery and diminutive left and small right posterior communi cating arteries. Cerebral arterial arborization appears symmetric. IMPRESSION: 1. No evident atherosclerotic plaque with 0% stenosis of the right and left carotid bulbs relative to normal distal artery lumen diameter (NASCET criteria). 2. Normal aging brain with unremarkable cerebral CT angiogram demonstrate no aneurysm, thrombosis or tumor none significant stenosis. 3. Likely significant stenosis at the left brachiocephalic vein with contrast extending through multi ple the upstream draining collateral veins as detailed above. Reviewed, dictated and finalized at location B. K BOX MECHANIC IMPRESSION: 1. No evident atherosclerotic plaque with 0% stenosis of the right and left car otid bulbs relative to normal distal artery lumen diameter (NASCET criteria). 2. Normal aging brain with unremarkable cerebral CT angiogram demonstrate no an eurysm, thrombosis or tumor none significant stenosis. 3. Likely significant stenosis at the left brachiocephalic vein with contrast e xtending through multiple the upstream draining collateral veins as detailed ab ove.
--- NOTE | ~2024-03-23 | XR_ITS ---
EXAMINATION: XR chest 2V DATE: 03/23/2024 14:24 INDICATION: Presyncopal episode TECHNIQUE: PA and lateral views of the chest were obtained. COMPARISON: Chest radiograph dated 05/19/2023 FINDINGS: Mild biapical pleural-parenchymal scarring. No other focal airspace opacities, pulmonary edema, pleur al effusion or pneumothorax. The cardiomediastinal silhouette is normal. Postoperative change of prio r median sternotomy and repair. Cardiac valve repair, likely aortic. There are few mediastinal surgic al clips suggesting possible coronary artery bypass grafting. Dual lead pacemaker seen with leads pro jecting over the expected locations of the right atrium and right ventricle. IMPRESSION: 1. Mild biapical pleural-parenchymal scarring. No acute cardiopulmonary disease. Reviewed, dictated and finalized at location B. GER IMPRESSION: 1. Mild biapical pleural-parenchymal scarring. No acute cardiopulmonary disease .
[2024-03-23 11:50] VITALS: BP 141/54; PULSE 68; RESP 18; TEMP 36.4; O2SAT 98
--- NOTE | 2024-03-23 13:17 | ECG_ITS ---
Test Date: 2024-03-23 13:42:32 Measurements Intervals [place] Rate: 63 P: 16 [place]: 168 QRS: 99 QRSD: 141 T: 5 QT: 442 QTc: 453 Interpretive Statements SINUS RHYTHM RIGHT BUNDLE BRANCH BLOCK LOW VOLTAGE- PRECORDIAL LEADS CONSIDER ANTEROSEPTAL INFARCT, AGE INDETERMINATE ABNORMAL ECG No previous ECG available for comparison Electronically Signed On 03-23-2024 13:52:07 SOLAR LAB TECHNICIAN by Geoffrey Velazquez D.O.
--- NOTE | 2024-03-23 13:19 | ED.DIZZY ---
HPI - Dizziness General Chief Complaint: Dizziness <Carlita Corrales APRN - Last Filed: 03/23/24 13:22> Stated Complaint: dizzy spell <Carlita Corrales APRN - Last Filed: 03/23/24 13:22> Time Seen by Provider: 03/23/24 13:10 <Carlita Corrales APRN - Last Filed: 03/23/24 13:22> Focused HPI: Patient is a 69-year-old female who presents to the ER with sudden onset of dizziness this morning are 6:30 a.m.. She reports that she has had vertigo in the past but nothing like this! Patient endorses the room is spinning intermittently and she feels dizzy. she reports she went to urgent care this morning and they advised her to come to the ER. Patient reports at the time of examination most of her symptoms have resolved. She denies emesis but endorses dry heaving this morning. Patient also endorses chills while waiting in the waiting room. She reports she has a history of a pacemaker and mechanical valve and is on warfarin. GENERAL: Well-appearing, well-nourished, and in no acute distress. HEAD: Normocephalic, atraumatic. CHEST: Clear to auscultation. ?No respiratory distress. HEART: Regular rate and rhythm.? NEURO: ?Alert and oriented x3. Patient screened in triage and initial orders placed.? ?Additional care and disposition to be based upon?diagnostic testing and treatment. <Carlita Corrales APRN - Last Filed: 03/23/24 13:22> History of Present Illness HPI Narrative: 69 female presenting after an episode of vertigo this morning. States that lasted 30 seconds to a minute. Associated with nausea and dry heaving. Agree with remainder of HPI above. <Marly Fairbanks MD - Last Filed: 03/23/24 17:54> Related Data Home Medications: Home Medications Medication Instructions Recorded Confirmed metoprolol succinate 50 mg 50 mg PO DAILY 03/03/19 03/23/24 tablet,extended release 24 hr warfarin 6 mg tablet (Coumadin) 6 mg PO DAILY 03/03/19 03/23/24 cholecalciferol (vitamin D3) 25 25 mcg PO DAILY 12/18/20 03/23/24 mcg (1,000 unit) capsule atorvastatin 40 mg tablet 40 mg PO QHS 06/30/22 03/23/24 <Carlita Corrales APRN - Last Filed: 03/23/24 13:22> Allergies/Adverse Reactions: Allergies Allergy/AdvReac Type Severity Reaction Status Date / Time Penicillins Allergy Rash Verified 03/23/24 10:30 codeine AdvReac Hallucinati Verified 03/23/24 10:30 [From Tylenol-Codeine #3] ng erythromycin base AdvReac Nausea Verified 03/23/24 10:30 oxycodone [From Percocet] AdvReac Hallucinati Verified 03/23/24 10:30 ng propofol AdvReac Chills Verified 03/23/24 10:30 MOST PAIN MEDS Allergy Hallucinati Uncoded 03/23/24 10:30 ng <Carlita Corrales APRN - Last Filed: 03/23/24 13:22> Review of Systems Review of Systems: All systems reviewed & are unremarkable except as noted in HPI and below <Marly Fairbanks MD - Last Filed: 03/23/24 17:54> [facility] Past Medical History Medical History: Medical History Arthritis Pacemaker Warfarin anticoagulation <Carlita Corrales APRN - Last Filed: 03/23/24 13:22> Surgical History Surgical History: Surgical History Bioprosthetic aortic valve replacement during current hospitalization S/P AVR (aortic valve replacement) <Carlita Corrales APRN - Last Filed: 03/23/24 13:22> Family History Family History: Family History Father Hypertension Sibling Hypertension FHx: cerebral aneurysm Mother Hypertension Arthritis <Carlita Corrales APRN - Last Filed: 03/23/24 13:22> Social History Social History: Social History Smoking status: Never smoker Second hand tobacco smoke exposure: No Alcohol intake: never Substance use: never Substance use type: does not use Do You Feel Safe in your Home?: Yes Living arrangements: with family Gender identity (if verbalized by the patient): Female Spiritual care concerns: No <Carlita Corrales APRN - Last Filed: 03/23/24 13:22> Course Vital Signs Vital signs: Vital Signs Temperature 97.6 F 03/23/24 11:50 Pulse Rate 68 03/23/24 11:50 Respiratory Rate 18 03/23/24 11:50 Blood Pressure 141/54 H 03/23/24 11:50 Pulse Oximetry 98 03/23/24 11:50 Oxygen Delivery Room Air 03/23/24 11:50 Temperature 97.7 F 03/23/24 16:02 Pulse Rate 65 03/23/24 16:02 Respiratory Rate 16 03/23/24 16:02 Blood Pressure 135/66 03/23/24 16:02 Pulse Oximetry 96 03/23/24 16:02 Oxygen Delivery Room Air 03/23/24 11:50 <Carlita Corrales HOME ADVISOR - Last Filed: 03/23/24 13:22> Vital Signs Temperature 97.6 F 03/23/24 11:50 Pulse Rate 68 03/23/24 11:50 Respiratory Rate 18 03/23/24 11:50 Blood Pressure 141/54 H 03/23/24 11:50 Pulse Oximetry 98 03/23/24 11:50 Oxygen Delivery Room Air 03/23/24 11:50 Temperature 97.7 F 03/23/24 16:02 Pulse Rate 65 03/23/24 16:02 Respiratory Rate 16 03/23/24 16:02 Blood Pressure 135/66 03/23/24 16:02 Pulse Oximetry 96 03/23/24 16:02 Oxygen Delivery Room Air 03/23/24 11:50 <Marly Fairbanks MD - Last Filed: 03/23/24 17:54> MDM - Dizziness Lab Data Result diagrams: 03/23/24 13:49 03/23/24 13:49 <Carlita Corrales APRN - Last Filed: 03/23/24 13:22> Labs: Lab Results 03/23/24 Range/Units 13:49 WBC 4.6 (4.5-10.0) K/mm3 RBC 4.48 (4.2-5.4) M/mm3 Hgb 13.5 (12.0-15.0) g/dL Hct 40.4 (37.0-47.0) % MCV 90.2 (80-100) fl MCH 30.1 (26-34) pg MCHC 33.4 (32-36) g/dl RDW 13.5 (11.5-14.5) % Plt Count 212 (150-375) k/mm3 MPV 10.6 H (7.4-10.4) fl Immature Gran % (Auto) 0.2 (0-0.5) % Neut % (Auto) 82.2 H (45.5-73.1) % Lymph % (Auto) 13.8 L (18.3-44.2) % [place] % (Auto) 3.0 (2.6-8.5) % Eos % (Auto) 0.2 (0-4.4) % Baso % (Auto) 0.6 (0.2-1.2) % Lymph # (Auto) 0.64 L (0.9-3.2) K/mm3 [place] # (Auto) 0.1 (0.1-0.6) K/mm3 Eos # (Auto) 0.0 (0-0.3) K/mm3 Baso # (Auto) 0.0 (0.0-0.1) K/mm3 Abs Immat Gran (auto) 0.01 (0.00-0.031) K/mm3 Absolute Neuts (auto) 3.8 (1.3-6.7) K/mm3 Absolute Nucleated RBC 0.000 (0.0-0.012) K/mm3 Nucleated RBC % 0.0 (0.0-0.2) % PT 22.2 H (11.1-14.7) Seconds INR 1.9 APTT 34.5 (22.3-36.8) Seconds Sodium 140 (137-145) mmol/L Potassium 3.8 (3.4-5.0) mmol/L Chloride 109 H (98-107) mmol/L Carbon Dioxide 26 (22-30) mmol/L Anion Gap 5 (4-12) mmol/L BUN 13 D (7-17) mg/dL Creatinine 0.80 (0.7-1.0) mg/dL Estim Creat Clear Calc 52 ml/min Estimated GFR > 60 (59 - ) Glucose 110 (65-110) mg/dL Lactic Acid 1.0 (0.7-2.0) mmol/L Calcium 9.2 (8.4-10.2) mg/dL Magnesium 2.0 (1.6-2.3) mg/dL Total Bilirubin 0.9 (0.2-1.3) mg/dL AST 36 (14-36) U/L ALT 38 H (6-35) U/L Alkaline Phosphatase 87 (38-126) U/L Troponin I < 0.012 (0.000-0.034) ng/mL NT-Pro-B Natriuret Pep 574 H (19.9-100) pg/mL Total Protein 8.0 (6.3-8.2) g/dL Albumin 4.4 (3.5-5.1) g/dL Urine Color Yellow (Yellow) Urine Appearance Clear (Clear) Urine pH 5.0 (5.0-9.0) Ur Specific [place] 1.005 (1.001-1.035) Urine Protein Negative (Negative) mg/dL Urine Glucose (UA) Negative (Negative) mg/dL Urine Ketones Negative (Negative) mg/dL Ur Blood (Man) Negative (Negative) Urine Nitrate Negative (Negative) Urine Bilirubin Negative (Negative) Urine Urobilinogen 0.2 (<2.0) mg/dL Leukocyte Esterase Rfl Trace H (Negative) VALERIE/UL Urine RBC 0-2 (0-2) /hpf Urine WBC 0-5 (0-3) /hpf Ur Squamous Epith Cells None seen (Few) /hpf Urine Bacteria None seen /hpf Urine Casts 0-2 Influenza A (RT-PCR) Negative (Negative) Influenza B (RT-PCR) Negative (Negative) RSV (RT-PCR) Negative (Negative) SARS-CoV-2 RNA (RT-PCR) Negative (Negative) <Carlita Corrales, HOME ADVISOR - Last Filed: 03/23/24 13:22> Lab Results 03/23/24 Range/Units 13:49 WBC 4.6 (4.5-10.0) K/mm3 RBC 4.48 (4.2-5.4) M/mm3 Hgb 13.5 (12.0-15.0) g/dL Hct 40.4 (37.0-47.0) % MCV 90.2 (80-100) fl MCH 30.1 (26-34) pg MCHC 33.4 (32-36) g/dl RDW 13.5 (11.5-14.5) % Plt Count 212 (150-375) k/mm3 MPV 10.6 H (7.4-10.4) fl Immature Gran % (Auto) 0.2 (0-0.5) % Neut % (Auto) 82.2 H (45.5-73.1) % Lymph % (Auto) 13.8 L (18.3-44.2) % [place] % (Auto) 3.0 (2.6-8.5) % Eos % (Auto) 0.2 (0-4.4) % Baso % (Auto) 0.6 (0.2-1.2) % Lymph # (Auto) 0.64 L (0.9-3.2) K/mm3 [place] # (Auto) 0.1 (0.1-0.6) K/mm3 Eos # (Auto) 0.0 (0-0.3) K/mm3 Baso # (Auto) 0.0 (0.0-0.1) K/mm3 Abs Immat Gran (auto) 0.01 (0.00-0.031) K/mm3 Absolute Neuts (auto) 3.8 (1.3-6.7) K/mm3 Absolute Nucleated RBC 0.000 (0.0-0.012) K/mm3 Nucleated RBC % 0.0 (0.0-0.2) % PT 22.2 H (11.1-14.7) Seconds INR 1.9 APTT 34.5 (22.3-36.8) Seconds Sodium 140 (137-145) mmol/L Potassium 3.8 (3.4-5.0) mmol/L Chloride 109 H (98-107) mmol/L Carbon Dioxide 26 (22-30) mmol/L Anion Gap 5 (4-12) mmol/L BUN 13 D (7-17) mg/dL Creatinine 0.80 (0.7-1.0) mg/dL Estim Creat Clear Calc 52 ml/min Estimated GFR > 60 (59 - ) Glucose 110 (65-110) mg/dL Lactic Acid 1.0 (0.7-2.0) mmol/L Calcium 9.2 (8.4-10.2) mg/dL Magnesium 2.0 (1.6-2.3) mg/dL Total Bilirubin 0.9 (0.2-1.3) mg/dL AST 36 (14-36) U/L ALT 38 H (6-35) U/L Alkaline Phosphatase 87 (38-126) U/L Troponin I < 0.012 (0.000-0.034) ng/mL NT-Pro-B Natriuret Pep 574 H (19.9-100) pg/mL Total Protein 8.0 (6.3-8.2) g/dL Albumin 4.4 (3.5-5.1) g/dL Urine Color Yellow (Yellow) Urine Appearance Clear (Clear) Urine pH 5.0 (5.0-9.0) Ur Specific [place] 1.005 (1.001-1.035) Urine Protein Negative (Negative) mg/dL Urine Glucose (UA) Negative (Negative) mg/dL Urine Ketones Negative (Negative) mg/dL Ur Blood (Man) Negative (Negative) Urine Nitrate Negative (Negative) Urine Bilirubin Negative (Negative) Urine Urobilinogen 0.2 (<2.0) mg/dL Leukocyte Esterase Rfl Trace H (Negative) VALERIE/UL Urine RBC 0-2 (0-2) /hpf Urine WBC 0-5 (0-3) /hpf Ur Squamous Epith Cells None seen (Few) /hpf Urine Bacteria None seen /hpf Urine Casts 0-2 Influenza A (RT-PCR) Negative (Negative) Influenza B (RT-PCR) Negative (Negative) RSV (RT-PCR) Negative (Negative) SARS-CoV-2 RNA (RT-PCR) Negative (Negative) <Marly Fairbanks MD - Last Filed: 03/23/24 17:54> Discharge Plan Discharge Prescriptions: No Action atorvastatin 40 mg tablet 40 mg PO QHS metoprolol succinate 50 mg Tablet Extended Release 24 Hr 50 mg PO DAILY Patient Comments: Pt will take AFTER the procedure per Dr Ramsey warfarin [Coumadin] 6 mg Tablet 6 mg PO DAILY Hold Instructions: Resume on 11/02/22. Rx Instructions: daily except Sundays cholecalciferol (vitamin D3) 25 mcg (1,000 unit) Capsule 25 mcg PO DAILY <Carlita Corrales, NICO - Last Filed: 03/23/24 13:22> Follow-up/Referrals: Vidya Galeano, AUTOMOTIVE DESIGN DRAFTER [Primary Care Provider] - <Carlita Corrales APRN - Last Filed: 03/23/24 13:22>
[2024-03-23 13:50] VITALS: BP 112/63; PULSE 65; RESP 17; O2SAT 97
[2024-03-23 13:58] LABS: Basophils Percent Auto 0.6 % (0.2-1.2); Eosinophils Percent Auto 0.2 % (0-4.4); Hematocrit 40.4 % (37.0-47.0); Hemoglobin 13.5 g/dL (12.0-15.0); Immature Granulocyte Absolute 0.01 K/mm3 (0.00-0.031); Immature Granulocyte Percent A 0.2 % (0-0.5); Lymphocytes Absolute Auto 0.64 K/mm3 (0.9-3.2); Lymphocytes Percent Auto 13.8 % (18.3-44.2); Mean Corpuscular HGB Conc 33.4 g/dl (32-36); Mean Corpuscular Hemoglobin 30.1 pg (26-34); Mean Corpuscular Volume 90.2 fl (80-100); Mean Platelet Volume 10.6 fl (7.4-10.4); Monocytes Absolute Auto 0.1 K/mm3 (0.1-0.6); Neutrophils Absolute Auto 3.8 K/mm3 (1.3-6.7); Neutrophils Percent Auto 82.2 % (45.5-73.1); Platelet Count Result 212 k/mm3 (150-375); Red Blood Count 4.48 M/mm3 (4.2-5.4); Red Cell Distribution Width 13.5 % (11.5-14.5); White Blood Count 4.6 K/mm3 (4.5-10.0)
[2024-03-23 14:05] LABS: Add Urine Microscopic? YES; Appearance Urine Clear (Clear); Bacteria Urine None Seen /hpf; Bilirubin Urine Negative (Negative); Blood Urine Negative (Negative); Color Urine Yellow (Yellow); Glucose Urine UA Negative (Negative); Ketones Urine Negative (Negative); Leukocyte Esterase Ur Trace LEU/UL (Negative); Nitrate Urine Negative (Negative); Non Pathogenic Casts 0-2; Protein Urine Negative (Negative); RBC Urine 0-2 /hpf (0-2); Specific Grav Ur 1.005 (1.001-1.035); Squamous Epithelial Cell Urine None Seen /hpf (Few); Urobilinogen Urine 0.2 mg/dL (<2.0); WBC Urine 0-5 /hpf (0-3)
[2024-03-23 14:10] LABS: Alanine Aminotransferase 38 U/L (6-35); Albumin Level 4.4 g/dL (3.5-5.1); Alkaline Phosphatase 87 U/L (38-126); Anion Gap 5 mmol/L (4-12); Aspartate Amino Transferase 36 U/L (14-36); Bilirubin,Total 0.9 mg/dL (0.2-1.3); Blood Urea Nitrogen 13 mg/dL (7-17); Calcium 9.2 mg/dL (8.4-10.2); Carbon Dioxide 26 mmol/L (22-30); Chloride 109 mmol/L (98-107); Estimated CRCL calculation 52 ml/min; Estimated Glomerular Filt Rate > 60; Glucose 110 mg/dL (65-110); INR 1.9; Potassium 3.8 mmol/L (3.4-5.0); Prothrombin Time 22.2 Seconds (11.1-14.7); Sodium 140 mmol/L (137-145)
[2024-03-23 14:11] LABS: Partial Thromboplastin Time 34.5 Seconds (22.3-36.8)
[2024-03-23 14:21] LABS: NT Pro B Type Natriuretic Pept 574 pg/mL (19.9-100); Troponin I < 0.012 ng/mL (0.000-0.034)
[2024-03-23 14:39] LABS: Influenza A QL RT-PCR Negative (Negative); Influenza B QL RT-PCR Negative (Negative); RSV RNA, RT-PCR Negative (Negative); SARS-CoV-2 RNA PCR Negative (Negative)
[2024-03-23 16:01] VITALS: BP 125/58; BP 135/66; PULSE 65
[2024-03-23 16:02] VITALS: BP 134/63; BP 135/66; PULSE 65; PULSE 67; RESP 16; TEMP 36.5; O2SAT 96
--- NOTE | 2024-03-23 16:09 | ED.DIZZY ---
HPI - Dizziness General Chief Complaint: Dizziness Stated Complaint: dizzy spell Time Seen by Provider: 03/23/24 13:10 History of Present Illness HPI Narrative: 69-year-old female with a history of mechanical valve on warfarin presenting with an episode of vertigo. States that she was watching TV this morning when she suddenly became dizzy and felt like the room was spinning. Castile like she could not walk because she was off balance. Lasted 30-60 seconds and then resolved after she was still for a while. No focal numbness or weakness. No speech difficulties. This was followed by some nausea and vomiting. No current complaints. Related Data Home Medications Medication Instructions Recorded Confirmed metoprolol succinate 50 mg 50 mg PO DAILY 03/03/19 03/23/24 tablet,extended release 24 hr warfarin 6 mg tablet (Coumadin) 6 mg PO DAILY 03/03/19 03/23/24 cholecalciferol (vitamin D3) 25 25 mcg PO DAILY 12/18/20 03/23/24 mcg (1,000 unit) capsule atorvastatin 40 mg tablet 40 mg PO QHS 06/30/22 03/23/24 Allergies Allergy/AdvReac Type Severity Reaction Status Date / Time Penicillins Allergy Rash Verified 03/23/24 10:30 codeine AdvReac Hallucinati Verified 03/23/24 10:30 [From Tylenol-Codeine #3] ng erythromycin base AdvReac Nausea Verified 03/23/24 10:30 oxycodone [From Percocet] AdvReac Hallucinati Verified 03/23/24 10:30 ng propofol AdvReac Chills Verified 03/23/24 10:30 MOST PAIN MEDS Allergy Hallucinati Uncoded 03/23/24 10:30 ng Review of Systems Review of Systems: All systems reviewed & are unremarkable except as noted in HPI and below PMFSH Past Medical History Medical History Arthritis Pacemaker Warfarin anticoagulation Surgical History Surgical History Bioprosthetic aortic valve replacement during current hospitalization S/P AVR (aortic valve replacement) Family History Family History Father Hypertension Sibling Hypertension FHx: cerebral aneurysm Mother Hypertension Arthritis Social History Social History Smoking status: Never smoker Second hand tobacco smoke exposure: No Alcohol intake: never Substance use: never Substance use type: does not use Do You Feel Safe in your Home?: Yes Living arrangements: with family Gender identity (if verbalized by the patient): Female Spiritual care concerns: No Exam Narrative: GENERAL: Well-appearing, no acute distress, pleasant cooperative HEAD: Normocephalic, atraumatic. EYES: PERRLA and EOMI. ENT: Mucous membranes moist. TMs normal bilaterally NECK: Supple. CHEST: No respiratory distress. HEART: Regular rate and rhythm EXTREMITIES: Normal range of motion. SKIN: Warm, dry, no rash. NEURO: No focal deficits. Alert and oriented x3. No pronator drift, [id number] intact PSYCH: Normal mood and affect. Course Vital Signs Vital signs: Vital Signs Temperature 97.6 F 03/23/24 11:50 Pulse Rate 68 03/23/24 11:50 Respiratory Rate 18 03/23/24 11:50 Blood Pressure 141/54 H 03/23/24 11:50 Pulse Oximetry 98 03/23/24 11:50 Oxygen Delivery Room Air 03/23/24 11:50 Temperature 97.7 F 03/23/24 16:02 Pulse Rate 65 03/23/24 16:02 Respiratory Rate 16 03/23/24 16:02 Blood Pressure 135/66 03/23/24 16:02 Pulse Oximetry 96 03/23/24 16:02 Oxygen Delivery Room Air 03/23/24 11:50 MDM - Dizziness MDM Narrative Medical decision making narrative: 69-year-old female presenting with an episode of vertigo. Vitals are within normal limits. Exam remarkable for the above. EKG per my interpretation shows normal sinus rhythm, right bundle-branch block, no ST elevations or depressions. Blood work without acute abnormalities. UA is unremarkable. CTA shows no acute abnormalities. Orthostatic vital signs are normal. Chest x-ray without acute abnormalities. Discussed the reassuring workup with the patient. Feel she is safe for outpatient management. She denies any recurrence of the vertigo. Discussed appropriate supportive care and return precautions. She is agreeable this plan. Discharged in stable condition. Differential Diagnosis Differential diagnosis: Likely benign paroxysmal positional vertigo, orthostatic hypotension and other (Vertigo, lightheadedness) Medical Records Attestation: I reviewed the patient's medical records. Lab Data Attestation: I reviewed the patient's lab results. 03/23/24 13:49 03/23/24 13:49 Labs: Lab Results 03/23/24 Range/Units 13:49 WBC 4.6 (4.5-10.0) K/mm3 RBC 4.48 (4.2-5.4) M/mm3 Hgb 13.5 (12.0-15.0) g/dL Hct 40.4 (37.0-47.0) % MCV 90.2 (80-100) fl MCH 30.1 (26-34) pg MCHC 33.4 (32-36) g/dl RDW 13.5 (11.5-14.5) % Plt Count 212 (150-375) k/mm3 MPV 10.6 H (7.4-10.4) fl Immature Gran % (Auto) 0.2 (0-0.5) % Neut % (Auto) 82.2 H (45.5-73.1) % Lymph % (Auto) 13.8 L (18.3-44.2) % [place] % (Auto) 3.0 (2.6-8.5) % Eos % (Auto) 0.2 (0-4.4) % Baso % (Auto) 0.6 (0.2-1.2) % Lymph # (Auto) 0.64 L (0.9-3.2) K/mm3 [place] # (Auto) 0.1 (0.1-0.6) K/mm3 Eos # (Auto) 0.0 (0-0.3) K/mm3 Baso # (Auto) 0.0 (0.0-0.1) K/mm3 Abs Immat Gran (auto) 0.01 (0.00-0.031) K/mm3 Absolute Neuts (auto) 3.8 (1.3-6.7) K/mm3 Absolute Nucleated RBC 0.000 (0.0-0.012) K/mm3 Nucleated RBC % 0.0 (0.0-0.2) % PT 22.2 H (11.1-14.7) Seconds INR 1.9 APTT 34.5 (22.3-36.8) Seconds Sodium 140 (137-145) mmol/L Potassium 3.8 (3.4-5.0) mmol/L Chloride 109 H (98-107) mmol/L Carbon Dioxide 26 (22-30) mmol/L Anion Gap 5 (4-12) mmol/L BUN 13 D (7-17) mg/dL Creatinine 0.80 (0.7-1.0) mg/dL Estim Creat Clear Calc 52 ml/min Estimated GFR > 60 (59 - ) Glucose 110 (65-110) mg/dL Lactic Acid 1.0 (0.7-2.0) mmol/L Calcium 9.2 (8.4-10.2) mg/dL Magnesium 2.0 (1.6-2.3) mg/dL Total Bilirubin 0.9 (0.2-1.3) mg/dL AST 36 (14-36) U/L ALT 38 H (6-35) U/L Alkaline Phosphatase 87 (38-126) U/L Troponin I < 0.012 (0.000-0.034) ng/mL NT-Pro-B Natriuret Pep 574 H (19.9-100) pg/mL Total Protein 8.0 (6.3-8.2) g/dL Albumin 4.4 (3.5-5.1) g/dL Urine Color Yellow (Yellow) Urine Appearance Clear (Clear) Urine pH 5.0 (5.0-9.0) Ur Specific [place] 1.005 (1.001-1.035) Urine Protein Negative (Negative) mg/dL Urine Glucose (UA) Negative (Negative) mg/dL Urine Ketones Negative (Negative) mg/dL Ur Blood (Man) Negative (Negative) Urine Nitrate Negative (Negative) Urine Bilirubin Negative (Negative) Urine Urobilinogen 0.2 (<2.0) mg/dL Leukocyte Esterase Rfl Trace H (Negative) VALERIE/UL Urine RBC 0-2 (0-2) /hpf Urine WBC 0-5 (0-3) /hpf Ur Squamous Epith Cells None seen (Few) /hpf Urine Bacteria None seen /hpf Urine Casts 0-2 Influenza A (RT-PCR) Negative (Negative) Influenza B (RT-PCR) Negative (Negative) RSV (RT-PCR) Negative (Negative) SARS-CoV-2 RNA (RT-PCR) Negative (Negative) Imaging Data Radiologist's impression: ITS Impressions Chest X-Ray 03/23/24 14:33 IMPRESSION: 1. Mild biapical pleural-parenchymal scarring. No acute cardiopulmonary disease. Head/Neck CTA 03/23/24 16:37 IMPRESSION: 1. No evident atherosclerotic plaque with 0% stenosis of the right and left carotid bulbs relative to normal distal artery lumen diameter (NASCET criteria). 2. Normal aging brain with unremarkable cerebral CT angiogram demonstrate no aneurysm, thrombosis or tumor none significant stenosis. 3. Likely significant stenosis at the left brachiocephalic vein with contrast extending through multiple the upstream draining collateral veins as detailed above. Critical Care Time Critical Care Time Critical Care Time: No Discharge Plan Discharge Clinical Impression: Vertigo, Nausea Patient Disposition: Home, Self-Care Condition: Stable Instructions: Antibiotic Form, Vertigo (ED) Additional Instructions: Your workup today is reassuring. Please follow-up closely with your PCP. If your symptoms worsen or other concerning symptoms arise, please return to the ER. Prescriptions: No Action atorvastatin 40 mg tablet 40 mg PO QHS metoprolol succinate 50 mg Tablet Extended Release 24 Hr 50 mg PO DAILY Patient Comments: Pt will take AFTER the procedure per Dr Ramsey warfarin [Coumadin] 6 mg Tablet 6 mg PO DAILY Hold Instructions: Resume on 11/02/22. Rx Instructions: daily except Sundays cholecalciferol (vitamin D3) 25 mcg (1,000 unit) Capsule 25 mcg PO DAILY Follow-up/Referrals: Vidya Galeano, ADMINISTRATIVE SERVICES MANAGER [Primary Care Provider] -
== END 2024-03-23 18:23 | disposition home or self-care (01) ==
PROVIDERS: Registered Nurse; Emergency Provider Emergency Medicine; PCP Nurse Practitioner
DX: R42 Dizziness and giddiness (principal); R11.0 Nausea; Z20.822 Contact with and (suspected) exposure to COVID-19; M19.90 Unspecified osteoarthritis, unspecified site; Z95.0 Presence of cardiac pacemaker; Z95.2 Presence of prosthetic heart valve; Z79.899 Other long term (current) drug therapy; Z79.01 Long term (current) use of anticoagulants; I45.10 Unspecified right bundle-branch block; R94.31 Abnormal electrocardiogram [ECG] [EKG]
CPT/HCPCS: 36415; 70496; 70498; 71046; 80053; 81001; 83605; 83735; 83880; 84484; 85025; 85610; 85730; 87637; 93005; 99284; Q9967

== ENCOUNTER 2024-06-07 11:34 | Outpatient (CLI) | payer OTHER, SELFPAY ==
--- NOTE | ~2024-06-07 | XR_ITS ---
Cervical Spine: AP, lateral, oblique, open-mouth views Clinical History: Pain Findings: There is mild straightening of the normal cervical lordosis. No fracture seen. There is min imal grade 1 retrolisthesis of C5 over C6. There is moderate degenerative disc narrowing at C5-C6 and C6-C7. There is probable bilateral neural foraminal narrowing at C5-C6 and C6-C7. Pre-vertebral soft tissues are unremarkable. Impression: Degenerative spondylosis of the lower cervical spine, as above. Reviewed, dictated and finalized at location M. L OPPORTUNITY COUNSELOR Impression: Degenerative spondylosis of the lower cervical spine, as above.
--- NOTE | ~2024-06-07 | XR_ITS ---
Lumbosacral Spine: AP, oblique, and lateral views Clinical History: Pain Findings: The normal lordotic curve is maintained. No acute fracture evident. There is 6 mm anterolis thesis of L4 over L5. There is severe facet arthropathy from L4 through S1. The sacroiliac joints are normally outlined. Impression: 6 mm anterolisthesis of L4 over L5. Facet arthropathy at the lower lumbar spine, as above. Reviewed, dictated and finalized at location M. ING DIRECTOR Impression: 6 mm anterolisthesis of L4 over L5. Facet arthropathy at the lower lumbar spine, as above.
== END 2024-06-07 11:35 | disposition home or self-care (01) ==
PROVIDERS: PCP Nurse Practitioner; Visit Provider Chiropractor
DX: M54.50 Low back pain, unspecified (principal); M43.16 Spondylolisthesis, lumbar region; M12.88 Other specific arthropathies, not elsewhere classified, other specified site
CPT/HCPCS: 72050; 72110

== ENCOUNTER 2024-12-07 17:44 | Emergency (ER) | payer OTHER, SELFPAY ==
--- NOTE | ~2024-12-07 | CT_ITS ---
History: Headache PROCEDURE: CT head without contrast. COMPARISON: 03/23/2024 TECHNIQUE: Axial imaging of the head performed from the skull base to the vertex without IV contrast. Sagittal a nd coronal reformations obtained. DLP: 605 mGy-cm FINDINGS: The ventricles are normal in size, shape and position. There is no mass, mass effect or midline shift. Bifrontal atrophy is noted, unchanged from prior. There is no abnormal extra-axial fluid collection or intracranial hemorrhage. Visualized paranasal sinuses are clear. The mastoid air cells are well aerated. No acute displaced fractures within the overlying cranium. 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 Reviewed, dictated and finalized at location A. 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
--- OUTSIDE RECORDS SUMMARY | 2024-12-07 17:47 | XMS_ITS | Encounter Summary ---
Author Organization [facility] Healthcare Address [address] [place] [address] Care Team Providers Care Doctor Of Dental Medicine Name Role Phone Vidya Galeano NP Primary Care Provider Encounter Details Date Type Department Care Team (Late st Contact Info) Description 10/25/2024 Orders Only [facility] [place] [address] [place] [phone] Scanning, Provider Social History Tobacco Use Types Packs/Day Years Used Date Smoking Tobacco: Never Smokeless Tobacco: Never Alcohol Use Standard Drinks/Week Comments No 0 (1 standard drink = 0.6 oz pur e alcohol) Comments Unknown Sex and Gender Information Value Date Recorded Sex Assigned at Not on file Legal Sex Female 1:32 AM 411 DIRECTORY ASSISTANCE OPERATOR Gender Identity Not on file Sexual Orientation Not on file documented as of this encounter Plan of Treatment Not on file documented as of this encounter Procedures Procedure Name Priority Date/Time Associated Diagnosis Comments SCAN - LABS 10/25/2024 documented in this encounter Results * SCAN - LABS (10/25/2024) us Provider Scanning Final Result documented in this encounter Visit Diagnoses Not on filedocumented in this encounter Care Teams Doctor Of Dental Medicine Relationship Specialty Start Date End Date Vidya Galeano NP PCP - General Nurse Practitioner 07/05/23 documented as of this encounter
--- OUTSIDE RECORDS SUMMARY | 2024-12-07 17:47 | XMS_ITS | Clinical Summary ---
Author Organization [facility] Address [address] [place] [phone] Care Team Providers Care Wind Tunnel Engineer Name Role Phone Vidya Galeano NP Primary Care Provider [phone] Allergies Active Allergy Reactions Criticality Noted Date Comments Erythromycin Itching,Nausea only Low Oxycodone-Acetaminophen Other (See comments) Low Reaction: Other Penicillins Hives,Rash Medium Propofol Other (See comments) Low Reaction: Other Sulfa (Sulfonamide Antibiotics) Hives Medium Sulfanilamide Rash Medium Vancomycin Itching Low Medications cholecalciferol (VITAMIN D-3) 1,000 unit Take 1 tablet/cap wanda (1,000 Units total) by mouth daily Active atorvastatin (LIPITOR) 40 mg tablet TAKE 1 TABLET(40 MG) BY MOUTH EVERY NIGHT 90 tablet 2 5 Active warfarin (COUMADIN) 6 mg tablet TAKE 1 TABLET(6 MG) BY MOUTH DAILY 90 tablet 5 Active metoprolol XL (TOPROL-XL) 50 mg extended release tablet TAKE 1 TABLET BY MOUTH DAILY 90 tablet 2 5 Active metoprolol XL (TOPROL-XL) 50 mg extended release tablet TAKE 1 TABLET BY MOUTH DAILY 90 tablet 2 5 11/23/19 25 Discontinued warfarin (COUMADIN) 6 mg tablet TAKE 1 TABLET(6 MG) BY MOUTH DAILY 90 tablet 5 11/18/19 25 Discontinued Active Problems Problem Noted Date Diagnosed Date 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 Patient asymptomatic involving left upper extremity edema. No surgical or procedural intervention is indicated at this time. Patient to follow up with the as needed basis Myalgia due to statin 12/30/2022 Visit for wound check 11/06/2022 Mixed hyperlipidemia 06/11/2021 RBBB 06/19/2020 Palpitations 11/29/2018 H/O bicuspid aortic valve 09/13/2017 PSVT (paroxysmal supraventricular tachycardia) 1 05/10/2016 H/O mechanical aortic valve replacement 03/10/20 Sick sinus syndrome 03/10/2017 Chronic anticoagulation 03/10/2017 Cardiac pacemaker in situ 03/03/2017 Overview (11/02/2022): Martinez Assurity Dual Pacemaker Dx; CHB. DOI 10/30/2022-Akilah. Keith-Lyman. Chronic leads 09/15/2012-Dr Suarez implanted. [place] remote home monitor Q3 mo, Office pacer checks Q1 yr. Dyspnea on exertion 08/14/2015 Overview (08/07/2016): FAULKNER (dyspnea on exertion) Nonsustained ventricular tachycardia 02/25/2015 Overview (08/07/2016): NSVT (nonsustained ventricular tachycardia) Vitamin deficiency 09/16/2013 Overview (08/07/2016): Vitamin Deficiency Mitral valve disease 09/16/2013 Overview (08/07/2016): MITRAL VALVE DISORDER Disorder of bone and cartilage 09/16/2013 Overview (08/07/2016): BONE & CARTILAGE DIS NOS Presence of cardiac pacemaker 08/15/2012 Aortic valve stenosis 04/03/2011 Resolved Problems Problem Noted Date Diagnosed Date Resolved Date Dyslipidemia 05/25/2018 06/11/2021 Encounters Date Type Department Care Team Description 11/22/[address] [facility] Cardiology [address] [place] [address] Cassidy Keller RN H/O mechanical aortic valve replacement (Primary Dx) 11/06/2024 Anticoagulation Visit [facility] [address] [place] [address] [place] [phone] Cassidy Keller RN H/O mechanical aortic valve replacement (Primary Dx) 10/25/2024 [place] Only [facility] [address] [place] [id number] Scanning, Provider 10/25/2024 Anticoagulation Visit [facility] Cardiology [address] [place] [address] [place] [phone] Kimberly Yip RN H/O mechanical aortic valve replacement (Primary Dx) 09/28/2024 Orders Only [facility] [place] [address] [place] [phone] Scanning, Provider 09/28/2024 Anticoagulation Visit [facility] Cardiology [address] [place] [address] [place] [phone] Tunde Tovar RN H/O mechanical aortic valve replacement (Primary Dx) from Last 3 Months Surgical History Surgery Date Site/Laterality Comments OTHER SURGICAL HISTORY Abnormal Pap smear: colposcopy with biopsy OTHER SURGICAL HISTORY : Pacemaker (SSS/pauses) s/ p RV lead revision from [place] Medical History Medical History Date Comments Hx Other Medical tennis elbow Hx Other Medical BTL Hx Other Medical ROBERTO child-hoode d cervix Hx Other Medical 1984 Abnormal Pap sm ear Hx Other Medical 2008 Osteopenia-femo ral neck Hx Other Medical vitamin D Defic iency Hx Other Medical 2010 Valvular Heart Disease (bicuspid AV sten s/p Mec A Hx Other Medical Arrhythmias ( P . Atrial Tachycardia) Family History Medical History Relation Name Comments Asthma Father Asthma; Other Father Emphzema; Cause of : Emphzema Hypertension Mother Hypertension; Osteoarthritis Mother Osteoarthriti s; Other Other 2 Family history of infected hip replacement; Cause of : Family history of infected hip replacement Alcohol abuse Sister Latoya Alcoholism; Hypertension Sister Latoya Hypertension; Other Sister Latoya aneursym; Cause of : aneursym Relation Name Status Comments Father Mother Other 1 Other 2 Sister Latoya (Age 29) Social History Tobacco Use Types Packs/Day Years Used Date Smoking Tobacco: Never Smokeless Tobacco: Never Tobacco Cessation:Counseling Given: Not Answered Alcohol Use Standard Drinks/Week Comments No 0 (1 standard drink = 0.6 oz pur e alcohol) Comments Unknown Sex and Gender Information Value Date Recorded Sex Assigned at Not on file Legal Sex Female 1:32 AM ASSET MANAGEMENT COORDINATOR Gender Identity Not on file Sexual Orientation Not on file Obstetrics History Last Filed Vital Signs Vital Sign Reading Time Taken Comments Blood Pressure 110/68 08/30/2024 9:48 AM CDT Pulse 70 08/30/2024 9:48 AM CDT Temperature - - Respiratory Rate - - Oxygen Saturation 97% 08/30/2024 9:48 AM CDT Inhaled Oxygen Concentration - - Weight 69.9 kg (154 lb) 08/30/2024 9:48 AM CDT Height 152.4 cm (5') 08/30/2024 9:48 AM CDT Body Mass Index 30.08 08/30/2024 9:48 AM CDT Plan of Treatment Health Maintenance Due Date Last Done Comments Colon Cancer Screening-Colonoscopy 1955 Depression Screening 1956 Fall Risk Assessment 1955 Hepatitis C Screening 1955 Osteoporosis Screening-Bone Density Scan 1955 DTaP/Tdap/Td Vaccine (1 - Tdap) 01/17/1967 Hepatitis B Screening 01/17/1974 Pneumococcal vaccine 65+ (1 of 1 - PCV) 01/17/2006 Zoster Vaccine (1 of 2) 01/17/2006 Well Visit 65+ 01/17/2021 Breast Cancer Screening-Mammogram 04/14/2022 021 Influenza Vaccine (#1) 2025 02/15/2020 Medical Devices Implanted Type [employer] Craftsman Device Identifier Shelf Expiration Date Model / Serial / Lot Pacemaker-04/17 Implanted:04/17 by Cassidy Spears (Quantity not on file) Pacemaker Chest [employer] [facility] ACCENT [id number] / [id number] / Description:Atrial & Ventric ular leads replaced on 09/15/[address] Suarez. Procedures Procedure Name Priority Date/Time Associated Diagnosis Comments PROTIME-INR Routine 11/24/2024 9:29 PM CDT PROTIME-INR Routine 11/06/2024 SCAN - LABS 10/25/2024 PROTIME-INR Routine 10/24/2024 SCAN - LABS 09/28/2024 PROTIME-INR Routine 09/28/2024 from Last 3 Months Results * (ABNORMAL) Protime-INR (11/24/2024 9:29 PM CDT) INR 2.80(A) 0.90 - 1.10 EXTERNAL LAB Blood Result [facility] Provider MD LAB BLOOD ORDERABLES Edit ed Result - Final Performing Organization Address [facility] de Phone Number EXTERNAL LAB * (ABNORMAL) Protime-INR (11/06/2024) INR 2.90(A) 0.90 - 1.10 EXTERNAL LAB Blood Result [facility] Provider MD LAB BLOOD ORDERABLES Edit ed Result - Final Performing Organization Address [facility] de Phone Number EXTERNAL LAB * SCAN - LABS (10/25/2024) Provider Scanning Final Result * (ABNORMAL) Protime-INR (10/24/2024) INR 1.70(A) 0.90 - 1.10 EXTERNAL LAB Blood Result [facility] Historical Provider MD LAB BLOOD ORDERABLES Ibeth l Result Performing Organization Address [facility] de Phone Number EXTERNAL LAB * SCAN - LABS (09/28/2024) Provider Scanning Final Result * (ABNORMAL) Protime-INR (09/28/2024) INR 1.90(A) 0.90 - 1.10 EXTERNAL LAB Blood 09/28/2024 us Historical Provider LAB BLOOD ORDERABLES Ibeth escobar Result EXTERNAL LAB from Last 3 Months Insurance [facility] CHO[facility] PLUS Care Teams Wind Tunnel Engineer Relationship Specialty Start Date End Date Vidya Galeano NP PCP - General Nurse Practitioner 07/05/23
--- OUTSIDE RECORDS SUMMARY | 2024-12-07 17:47 | XMS_ITS | Encounter Summary ---
Author Organization [facility] Healthcare Address [address] [place] [address] Care Team Providers Care Harvest Supervisor Name Role Phone Vidya Galeano NP Primary Care Provider [phone] Encounter Details Date Type Department Care Team (Late st Contact Info) Description 03/14/2024 Orders Only [facility] Health Information Management [address] [place] [phone] Scanning, Provider Social History Tobacco Use Types Packs/Day Years Used Date Smoking Tobacco: Never Smokeless Tobacco: Never Alcohol Use Standard Drinks/Week Comments No 0 (1 standard drink = 0.6 oz pur e alcohol) Comments Unknown Sex and Gender Information Value Date Recorded Sex Assigned at Not on file 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
--- OUTSIDE RECORDS SUMMARY | 2024-12-07 17:47 | XMS_ITS | Encounter Summary ---
Author Organization [facility] Medical Group Address [address] [facility] [address] [place] [address] Care Team Providers Care Lining Repairer Name Role Phone Maxi Damian MD Primary Care Provider [phone] Vidya Galeano NP Primary Care Provider [phone] Encounter Details Date Type Department Care Team (Late st Contact Info) Description 09/01/2016 Orders Only [facility] ProviderLexy MD [address] [phone] Social History Tobacco Use Types Packs/Day Years Used Date Smoking Tobacco: Never Alcohol Use Standard Drinks/Week Comments No 0 (1 standard drink = 0.6 oz pur e alcohol) Comments Unknown Sex and Gender Information Value Date Recorded Sex Assigned at Not on file Legal Sex Female 1:32 AM INTENSIVE CARE MEDICINE SPECIALIST Gender Identity Not on file Sexual Orientation Not on file documented as of this encounter Plan of Treatment Not on file documented as of this encounter Procedures Procedure Name Priority Date/Time Associated Diagnosis Comments CARDIOLOGY REPORT 09/01/2016 documented in this encounter Results * CARDIOLOGY REPORT (09/01/2016) Anatomical Region Laterality Modality Other Narrative 09/01/2016 Ordered by an unspecified provider. Historical Provider [facility] Final Result documented in this encounter Visit Diagnoses Not on filedocumented in this encounter Care Teams Lining Repairer Relationship Specialty Start Date End Date Maxi Damian MD [facility] [place] [address] PCP - General 07/31/16 07/04/23 Vidya Galeano NP [facility] [place] [address] PCP - General Nurse Practitioner 07/05/23 documented as of this encounter
--- OUTSIDE RECORDS SUMMARY | 2024-12-07 17:47 | XMS_ITS | Encounter Summary ---
Author Organization [facility] Healthcare Address [address] [place] [address] Care Team Providers Care Paid Search Analyst Name Role Phone Vidya Galeano NP Primary Care Provider [phone] Encounter Details Date Type Department Care Team (Late st Contact Info) Description 07/27/2024 Orders Only [facility] Health Information Management [address] [place] [address] Scanning, Provider Social History Tobacco Use Types Packs/Day Years Used Date Smoking Tobacco: Never Smokeless Tobacco: Never Alcohol Use Standard Drinks/Week Comments No 0 (1 standard drink = 0.6 oz pur e alcohol) Comments Unknown Sex and Gender Information Value Date Recorded Sex Assigned at Not on file Legal Sex Female 1:32 AM SAMPLE SELECTOR Gender Identity Not on file Sexual Orientation Not on file documented as of this encounter Plan of Treatment Not on file documented as of this encounter Procedures Procedure Name Priority Date/Time Associated Diagnosis Comments SCAN - LABS 07/27/2024 documented in this encounter Results * SCAN - LABS (07/27/2024) us Provider Scanning Final Result documented in this encounter Visit Diagnoses Not on filedocumented in this encounter Care Teams Paid Search Analyst Relationship Specialty Start Date End Date Vidya Galeano NP PCP - General Nurse Practitioner 07/05/23 documented as of this encounter
--- OUTSIDE RECORDS SUMMARY | 2024-12-07 17:47 | XMS_ITS | Encounter Summary ---
Author Organization [facility] Healthcare Address [address] [place] [address] Care Team Providers Care Rehabilitation Therapy Aide Name Role Phone Vidya Galeano NP Primary Care Provider Encounter Details Date Type Department Care Team (Late st Contact Info) Description 03/23/2024 Orders Only [facility] Health Information Management [address] [place] [address] Scanning, Provider Social History Tobacco Use Types Packs/Day Years Used Date Smoking Tobacco: Never Smokeless Tobacco: Never Alcohol Use Standard Drinks/Week Comments No 0 (1 standard drink = 0.6 oz pur e alcohol) Comments Unknown Sex and Gender Information Value Date Recorded Sex Assigned at Not on file Legal Sex Female 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 Gender Identity Not on file Sexual Orientation Not on file documented as of this encounter Plan of Treatment Not on file documented as of this encounter Procedures Procedure Name Priority Date/Time Associated Diagnosis Comments SCAN - RADIOLOGY/IMAGING 03/23/2024 documented in this encounter Results * SCAN - RADIOLOGY/IMAGING (03/23/2024) Anatomical Region Laterality Modality Other us Provider Scanning Final Result documented in this encounter Visit Diagnoses Not on filedocumented in this encounter Care Teams Rehabilitation Therapy Aide Relationship Specialty Start Date End Date Vidya Galeano NP PCP - General Nurse Practitioner 07/05/23 documented as of this encounter
--- OUTSIDE RECORDS SUMMARY | 2024-12-07 17:47 | XMS_ITS | Encounter Summary ---
Author Organization [facility] Healthcare Address [address] [place] [address] Care Team Providers Care Private Mortgage Banker Safe Name Role Phone Maxi Damian MD Primary Care Provider [phone] Vidya Galeano NP Primary Care Provider [phone] Encounter Details Date Type Department Care Team (Late st Contact Info) Description 10/25/2022 Orders Only [facility] Health Information Management [address] [place] [address] Scanning, Provider Social History Tobacco Use Types Packs/Day Years Used Date Smoking Tobacco: Never Smokeless Tobacco: Never Alcohol Use Standard Drinks/Week Comments No 0 (1 standard drink = 0.6 oz pur e alcohol) Comments Unknown Sex and Gender Information Value Date Recorded Sex Assigned at Not on file Legal Sex Female 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 INSTALLER Gender Identity Not on file Sexual Orientation Not on file documented as of this encounter Plan of Treatment Not on file documented as of this encounter Procedures Procedure Name Priority Date/Time Associated Diagnosis Comments SCAN - LABS 10/25/2022 documented in this encounter Results * SCAN - LABS (10/25/2022) us Provider Scanning Final Result documented in this encounter Visit Diagnoses Not on filedocumented in this encounter Care Teams Private Mortgage Banker Safe Relationship Specialty Start Date End Date Maxi Damian MD [address] [place] [address] [place] [address] PCP - General 07/31/16 07/04/23 Vidya Galeano NP [facility] [place] [address] PCP - General Nurse Practitioner 07/05/23 documented as of this encounter
--- OUTSIDE RECORDS SUMMARY | 2024-12-07 17:47 | XMS_ITS | Encounter Summary ---
Author Organization [facility] Healthcare Address [address] [place] [address] Care Team Providers Care Cutter And Paster Press Clippings Name Role Phone Vidya Galeano NP Primary Care Provider [phone] Encounter Details Date Type Department Care Team (Late st Contact Info) Description 03/20/2024 Orders Only [facility] Health Information Management [address] [place] [address] Scanning, Provider Social History Tobacco Use Types Packs/Day Years Used Date Smoking Tobacco: Never Smokeless Tobacco: Never Alcohol Use Standard Drinks/Week Comments No 0 (1 standard drink = 0.6 oz pur e alcohol) Comments Unknown Sex and Gender Information Value Date Recorded Sex Assigned at Not on file Legal Sex Female 1:32 AM POLICY DIRECTOR Gender Identity Not on file Sexual Orientation Not on file documented as of this encounter Plan of Treatment Not on file documented as of this encounter Procedures Procedure Name Priority Date/Time Associated Diagnosis Comments SCAN - LABS 03/20/2024 documented in this encounter Results * SCAN - LABS (03/20/2024) us Provider Scanning Final Result documented in this encounter Visit Diagnoses Not on filedocumented in this encounter Care Teams Cutter And Paster Press Clippings Relationship Specialty Start Date End Date Vidya Galeano NP PCP - General Nurse Practitioner 07/05/23 documented as of this encounter
--- OUTSIDE RECORDS SUMMARY | 2024-12-07 17:47 | XMS_ITS | Patient Health Record ---
Author Organization [facility] Address [address] [facility] [address] [address] Care Team Providers Care Ear Machine Operator Name Role Phone Janessa Al Unavailable [phone] Reason For Referral No Information Medications Medication SIG (Take, Route, Frequency, Duration) Notes Start Date End Date Status Metoprolol Succinate ER 50 MG Oral Active Warfarin Sodium 6 MG Oral Active Plan Of Treatment No Information
--- OUTSIDE RECORDS SUMMARY | 2024-12-07 17:47 | XMS_ITS | Encounter Summary ---
Author Organization [facility] Healthcare Address [address] [place] [address] Care Team Providers Care Data Center Consultant Name Role Phone Vidya Galeano NP Primary Care Provider [phone] Encounter Details Date Type Department Care Team (Late st Contact Info) Description 09/28/2024 Orders Only [facility] Health Information Management [address] [place] [address] Scanning, Provider Social History Tobacco Use Types Packs/Day Years Used Date Smoking Tobacco: Never Smokeless Tobacco: Never Alcohol Use Standard Drinks/Week Comments No 0 (1 standard drink = 0.6 oz pur e alcohol) Comments Unknown Sex and Gender Information Value Date Recorded Sex Assigned at Not on file Legal Sex Female 1:32 AM HONEY PRODUCER Gender Identity Not on file Sexual Orientation Not on file documented as of this encounter Plan of Treatment Not on file documented as of this encounter Procedures Procedure Name Priority Date/Time Associated Diagnosis Comments SCAN - LABS 09/28/2024 documented in this encounter Results * SCAN - LABS (09/28/2024) us Provider Scanning Final Result documented in this encounter Visit Diagnoses Not on filedocumented in this encounter Care Teams Data Center Consultant Relationship Specialty Start Date End Date Vidya Galeano NP PCP - General Nurse Practitioner 07/05/23 documented as of this encounter
--- OUTSIDE RECORDS SUMMARY | 2024-12-07 17:47 | XMS_ITS | Encounter Summary ---
Author Organization [facility] Healthcare Address [address] [place] [address] Care Team Providers Care Laundry Operator Finishing Name Role Phone Vidya Galeano NP Primary Care Provider Encounter Details Date Type Department Care Team (Late st Contact Info) Description 09/03/2024 Orders Only [facility] Health Information Management [address] [place] [address] Scanning, Provider Social History Tobacco Use Types Packs/Day Years Used Date Smoking Tobacco: Never Smokeless Tobacco: Never Alcohol Use Standard Drinks/Week Comments No 0 (1 standard drink = 0.6 oz pur e alcohol) Comments Unknown Sex and Gender Information Value Date Recorded Sex Assigned at Not on file Legal Sex Female 1:[address] Gender Identity Not on file Sexual Orientation Not on file documented as of this encounter Plan of Treatment Not on file documented as of this encounter Procedures Procedure Name Priority Date/Time Associated Diagnosis Comments SCAN - LABS 09/03/2024 documented in this encounter Results * SCAN - LABS (09/03/2024) us Provider Scanning Final Result documented in this encounter Visit Diagnoses Not on filedocumented in this encounter Care Teams Laundry Operator Finishing Relationship Specialty Start Date End Date Vidya Galeano NP PCP - General Nurse Practitioner 07/05/23 documented as of this encounter
--- OUTSIDE RECORDS SUMMARY | 2024-12-07 17:47 | XMS_ITS | Encounter Summary ---
Author Organization [facility] Medical Group Address [address] [facility] [address] [place] [address] Care Team Providers Care Magazine Grinder Loader Name Role Phone Maxi Damian MD Primary Care Provider [phone]- [phone] Maxi Damian MD Primary Care Provider + [phone] Vidya Galeano NP Primary Care Provider [phone] Encounter Details Date Type Department Care Team (Late st Contact Info) Description 06/02/2016 Orders Only [facility] ProviderLexy MD [address] [place] [address] Social History Tobacco Use Types Packs/Day Years Used Date Smoking Tobacco: Never Alcohol Use Standard Drinks/Week Comments No 0 (1 standard drink = 0.6 oz pur e alcohol) Comments Unknown Sex and Gender Information Value Date Recorded Sex Assigned at Not on file Legal Sex Female 1:32 AM CITY BAILIFF Gender Identity Not on file Sexual Orientation Not on file documented as of this encounter Plan of Treatment Not on file documented as of this encounter Procedures Procedure Name Priority Date/Time Associated Diagnosis Comments CARDIOLOGY REPORT 06/02/2016 documented in this encounter Results * CARDIOLOGY REPORT (06/02/2016) Anatomical Region Laterality Modality Other Narrative 06/02/2016 Ordered by an unspecified provider. Historical Provider [facility] DIA[facility] Final Result documented in this encounter Visit Diagnoses Not on filedocumented in this encounter Care Teams Magazine Grinder Loader Relationship Specialty Start Date End Date Maxi Damian MD [address] [place] [address] [place] [address] PCP - General 07/31/16 07/04/23 Maxi Damian MD [address] [place] [address] [place] [address] PCP - General 03/25/11 07/30/16 Vidya Galeano NP [address] [place] [address] [place] [address] PCP - General Nurse Practitioner 07/05/23 documented as of this encounter
[2024-12-07 18:09] VITALS: BP 143/65; PULSE 65; RESP 16; TEMP 36.7; O2SAT 97
--- NOTE | 2024-12-07 18:54 | ED.RECABL ---
HPI - Recheck/Abnormal Lab/Rx General Chief Complaint: Recheck/Abnormal Lab/Rx <Julia Jim PA-C - Last Filed: 12/07/24 18:56> Stated Complaint: INR 4.6 headache, dr jacinto a scan <Julia Jim PA-C - Last Filed: 12/07/24 18:56> Time Seen by Provider: 12/07/24 20:20 <Julia Jim PA-C - Last Filed: 12/07/24 18:56> Focused HPI: 69-year-old female with a history of mechanical aortic valve on warfarin presents to emergency department for an elevated INR. Patient states she developed a headache today, checked her INR at home and was found to be 4.6. She contacted the land classifier on-call who is Dr. Piña and was advised to come to the ED for further evaluation. She states about a month ago when she last checked her INR it was lower around 1.8. At that time she was taking 3 mg of warfarin on Sundays and 6 mg remainder of the week, however since her INR was low she was advised to increase her warfarin 6 mg daily which she has been taking for the past month. Patient denies head injury trauma, vision changes, focal numbness or weakness, fever. GENERAL: Well-appearing, well-nourished, and in no acute distress. HEAD: Normocephalic, atraumatic. CHEST: Clear to auscultation. ?No respiratory distress. HEART: Regular rate and rhythm.? NEURO: ?Alert and oriented x4. Cranial nerves 2-12 intact. Strength 5/5 in BUE and BLE. Sensation intact throughout. No ataxia. Patient screened in triage and initial orders placed.? ?Additional care and disposition to be based upon?diagnostic testing and treatment. <Julia Jim PA-C - Last Filed: 12/07/24 18:56> Related Data Home Medications: Home Medications ?Medication ?Instructions ?Recorded ?Confirmed ?Last Taken ?Type metoprolol succinate 50 mg 50 mg PO DAILY 03/03/19 03/28/24 10/29/22 History tablet,extended release 24 hr warfarin 6 mg tablet (Coumadin) 6 mg PO DAILY 03/03/19 03/28/24 10/29/22 History cholecalciferol (vitamin D3) 25 25 mcg PO DAILY 12/18/20 03/28/24 10/29/22 History mcg (1,000 unit) capsule atorvastatin 40 mg tablet 40 mg PO QHS 06/30/22 03/28/24 10/29/22 History <Julia Jim PA-C - Last Filed: 12/07/24 18:56> Allergies/Adverse Reactions: Allergies Allergy/AdvReac Type Severity Reaction Status Date / Time Penicillins Allergy Rash Verified 03/28/24 10:14 codeine (From AdvReac Hallucinati Verified 03/28/24 10:14 Tylenol-Codeine #3) ng erythromycin base AdvReac Nausea Verified 03/28/24 10:14 oxycodone (From Percocet) AdvReac Hallucinati Verified 03/28/24 10:14 ng propofol AdvReac Chills Verified 03/28/24 10:14 MOST PAIN MEDS Allergy Hallucinati Uncoded 03/28/24 10:14 ng <DUKE Kwong Last Filed: 12/07/24 18:56> Review of Systems Review of Systems: All systems reviewed & are unremarkable except as noted in HPI and below <Carlita Corrales APRN - Last Filed: 12/07/24 20:45> [facility] Past Medical History Medical History: Medical History Arthritis Pacemaker Warfarin anticoagulation <DUKE Kwong Last Filed: 12/07/24 18:56> Surgical History Surgical History: Surgical History S/P AVR (aortic valve replacement) Bioprosthetic aortic valve replacement during current hospitalization <DUKE Kwong Last Filed: 12/07/24 18:56> Family History Family History: Family History Father Hypertension Sibling Hypertension FHx: cerebral aneurysm Mother Hypertension Arthritis <DUKE Kwong Last Filed: 12/07/24 18:56> Social History Social History: Social History Smoking status: Never smoker Second hand tobacco smoke exposure: No Alcohol intake: never Substance use: never Substance use type: does not use Do You Feel Safe in your Home?: Yes Living arrangements: with family Gender identity (if verbalized by the patient): Female Spiritual care concerns: No <Julia Jim PA-C - Last Filed: 12/07/24 18:56> Exam Narrative: GENERAL: Well-appearing, well-nourished, and in no acute distress. HEAD: Normocephalic, atraumatic. CHEST: Clear to auscultation. ?No respiratory distress. HEART: Regular rate and rhythm.? NEURO: ?Alert and oriented x4. Cranial nerves 2-12 intact. Strength 5/5 in BUE and BLE. Sensation intact throughout. No ataxia. <Carlita Corrales APRN - Last Filed: 12/07/24 20:45> Course Vital Signs Vital signs: Vital Signs Temperature 36.7 C 12/07/24 18:09 Pulse Rate 65 12/07/24 18:09 Respiratory Rate 16 12/07/24 18:09 Blood Pressure 143/65 H 12/07/24 18:09 Pulse Oximetry 97 12/07/24 18:09 Oxygen Delivery Room Air 12/07/24 18:09 Temperature 36.7 C 12/07/24 18:09 Pulse Rate 65 12/07/24 18:09 Respiratory Rate 16 12/07/24 18:09 Blood Pressure 143/65 H 12/07/24 18:09 Pulse Oximetry 97 12/07/24 18:09 Oxygen Delivery Room Air 12/07/24 18:09 <Julia Jim PA-C - Last Filed: 12/07/24 18:56> Vital Signs Temperature 36.7 C 12/07/24 18:09 Pulse Rate 65 12/07/24 18:09 Respiratory Rate 16 12/07/24 18:09 Blood Pressure 143/65 H 12/07/24 18:09 Pulse Oximetry 97 12/07/24 18:09 Oxygen Delivery Room Air 12/07/24 18:09 Temperature 36.7 C 12/07/24 18:09 Pulse Rate 65 12/07/24 18:09 Respiratory Rate 16 12/07/24 18:09 Blood Pressure 143/65 H 12/07/24 18:09 Pulse Oximetry 97 12/07/24 18:09 Oxygen Delivery Room Air 12/07/24 18:09 <Carlita Corrales APRN - Last Filed: 12/07/24 20:45> MDM - Recheck/Abnormal Lab/Rx MDM Narrative Medical decision making narrative: 69-year-old female with a history of mechanical aortic valve on warfarin presents to emergency department for an elevated INR. Patient states she developed a headache today, checked her INR at home and was found to be 4.6. She contacted the land classifier on-call who is Dr. Piña and was advised to come to the ED for further evaluation. She states about a month ago when she last checked her INR it was lower around 1.8. At that time she was taking 3 mg of warfarin on Sundays and 6 mg remainder of the week, however since her INR was low she was advised to increase her warfarin 6 mg daily which she has been taking for the past month. Patient denies head injury trauma, vision changes, focal numbness or weakness, fever. Labs Ordered: PTT, INR, CBC, BMP Imaging Ordered: CT brain Medications Ordered: Tylenol 1 g PO Results: Pt's CT brain indicates Bifrontal atrophy without acute intracranial hemorrhage or suspicious mass effect. Diagnosis: Headache, concern for abnormal lab values Patient Education/Shared MDM: Results of lab work and imaging shared with patient. She endorses improvement of headache symptoms following medication administration. Patient reports she no longer has a headache and declines headache cocktail medication. Patient strongly advised to maintain hydration status upon discharge and follow-up with her land classifier as soon as possible. She reports she will call her land classifier tomorrow morning. Pt will not be discharged home with any new prescriptions. Strict return precautions provided. Patient verbalized understanding and is in agreement with plan. Vital signs stable at time of discharge. All questions answered. <Carlita Corrales APRN - Last Filed: 12/07/24 20:45> Differential Diagnosis Differential diagnosis: Likely warfarin-induced coagulopathy and other (Elevated INR, increased risk for bleeding, thrombocytopenia) <Carlita Corrales APRN - Last Filed: 12/07/24 20:45> Lab Data Attestation: I reviewed the patient's lab results. <Carlita Corrales APRN - Last Filed: 12/07/24 20:45> Result diagrams: 12/07/24 19:41 12/07/24 19:41 <Julia Jim PA-C - Last Filed: 12/07/24 18:56> Labs: Lab Results 12/07/24 Range/Units 19:41 WBC 5.4 (4.5-10.0) K/mm3 RBC 4.32 (4.2-5.4) M/mm3 Hgb 12.8 (12.0-15.0) g/dL Hct 39.5 (37.0-47.0) % MCV 91.4 (80-100) fl MCH 29.6 (26-34) pg MCHC 32.4 (32-36) g/dl RDW 13.5 (11.5-14.5) % Plt Count 211 (150-375) k/mm3 MPV 10.5 H (7.4-10.4) fl Immature Gran % (Auto) 0.2 (0-0.5) % Neut % (Auto) 62.1 (45.5-73.1) % Lymph % (Auto) 25.1 (18.3-44.2) % [place] % (Auto) 9.5 H (2.6-8.5) % Eos % (Auto) 2.2 (0-4.4) % Baso % (Auto) 0.9 (0.2-1.2) % Lymph # (Auto) 1.35 (0.9-3.2) K/mm3 [place] # (Auto) 0.5 (0.1-0.6) K/mm3 Eos # (Auto) 0.1 (0-0.3) K/mm3 Baso # (Auto) 0.1 (0.0-0.1) K/mm3 Abs Immat Gran (auto) 0.01 (0.00-0.031) K/mm3 Absolute Neuts (auto) 3.3 (1.3-6.7) K/mm3 Absolute Nucleated RBC 0.000 (0.0-0.012) K/mm3 Nucleated RBC % 0.0 (0.0-0.2) % PT 31.8 H (11.1-14.7) Seconds INR 3.2 APTT 53.1 H (22.3-36.8) Seconds Sodium 139 (137-145) mmol/L Potassium 4.1 (3.4-5.0) mmol/L Chloride 108 H (98-107) mmol/L Carbon Dioxide 24 (22-30) mmol/L Anion Gap 7 (4-12) mmol/L BUN 17 (7-17) mg/dL Creatinine 0.96 (0.7-1.0) mg/dL Estim Creat Clear Calc 43 ml/min Estimated GFR 58 L (59 - ) Glucose 90 (65-110) mg/dL Calcium 9.2 (8.4-10.2) mg/dL <Julia Jim PA-C - Last Filed: 12/07/24 18:56> Lab Results 12/07/24 Range/Units 19:41 WBC 5.4 (4.5-10.0) K/mm3 RBC 4.32 (4.2-5.4) M/mm3 Hgb 12.8 (12.0-15.0) g/dL Hct 39.5 (37.0-47.0) % MCV 91.4 (80-100) fl MCH 29.6 (26-34) pg MCHC 32.4 (32-36) g/dl RDW 13.5 (11.5-14.5) % Plt Count 211 (150-375) k/mm3 MPV 10.5 H (7.4-10.4) fl Immature Gran % (Auto) 0.2 (0-0.5) % Neut % (Auto) 62.1 (45.5-73.1) % Lymph % (Auto) 25.1 (18.3-44.2) % [place] % (Auto) 9.5 H (2.6-8.5) % Eos % (Auto) 2.2 (0-4.4) % Baso % (Auto) 0.9 (0.2-1.2) % Lymph # (Auto) 1.35 (0.9-3.2) K/mm3 [place] # (Auto) 0.5 (0.1-0.6) K/mm3 Eos # (Auto) 0.1 (0-0.3) K/mm3 Baso # (Auto) 0.1 (0.0-0.1) K/mm3 Abs Immat Gran (auto) 0.01 (0.00-0.031) K/mm3 Absolute Neuts (auto) 3.3 (1.3-6.7) K/mm3 Absolute Nucleated RBC 0.000 (0.0-0.012) K/mm3 Nucleated RBC % 0.0 (0.0-0.2) % PT 31.8 H (11.1-14.7) Seconds INR 3.2 APTT 53.1 H (22.3-36.8) Seconds Sodium 139 (137-145) mmol/L Potassium 4.1 (3.4-5.0) mmol/L Chloride 108 H (98-107) mmol/L Carbon Dioxide 24 (22-30) mmol/L Anion Gap 7 (4-12) mmol/L BUN 17 (7-17) mg/dL Creatinine 0.96 (0.7-1.0) mg/dL Estim Creat Clear Calc 43 ml/min Estimated GFR 58 L (59 - ) Glucose 90 (65-110) mg/dL Calcium 9.2 (8.4-10.2) mg/dL <Carlita Corrales APRN - Last Filed: 12/07/24 20:45> Imaging Data Attestation: I personally reviewed and interpreted this imaging study as follows: <Carlita Corrales APRN - Last Filed: 12/07/24 20:45> Radiologist's impression: Impressions Head CT 12/07/24 19:25 Impression: Bifrontal atrophy without acute intracranial hemorrhage or suspicious mass effect. <Carlita Corrales APRN - Last Filed: 12/07/24 20:45> Discharge Plan Discharge Clinical Impression: At risk for bleeding associated with anticoagulants, Headache, Elevated partial thromboplastin time (PTT) <Julia Jim PA-C - Last Filed: 12/07/24 18:56> Patient Disposition: Home <Julia Jim PA-C - Last Filed: 12/07/24 18:56> Condition: Stable <DUKE Kwong Last Filed: 12/07/24 18:56> Instructions: Antibiotic Form, Warfarin (By mouth) <Julia Jim PA-C - Last Filed: 12/07/24 18:56> Additional Instructions: Please return to the ER with any worsening symptoms. Follow-up with your land classifier as soon as possible. Take all medications as prescribed, including regularly scheduled medications. <Julia Jim PA-C - Last Filed: 12/07/24 18:56> Patient Language: Indonesian <Julia Jim PA-C - Last Filed: 12/07/24 18:56> Prescriptions: No Action atorvastatin 40 mg tablet 40 mg PO QHS metoprolol succinate 50 mg Tablet Extended Release 24 Hr 50 mg PO DAILY Patient Comments: Pt will take AFTER the procedure per Dr Ramsey warfarin [Coumadin] 6 mg Tablet 6 mg PO DAILY Rx Instructions: daily except Sundays cholecalciferol (vitamin D3) 25 mcg (1,000 unit) Capsule 25 mcg PO DAILY nystatin 100,000 unit/gram cream See Rx Instructions .ROUTE .COMPLEX Qty: 30 3RF Dose Instruction: APPLY TOPICALLY TO THE AFFECTED AREA DAILY NEEDED FOR RASH Rx Instructions: APPLY TOPICALLY TO THE AFFECTED AREA DAILY NEEDED FOR RASH <Julia Jim PA-C - Last Filed: 12/07/24 18:56> Follow-up/Referrals: Vidya Galeano, INSPECTOR SET UP AND LAY OUT [Primary Care Provider] - <Julia Jim PA-C - Last Filed: 12/07/24 18:56> Time of Disposition: 20:44 <Julia Jim PA-C - Last Filed: 12/07/24 18:56> 20:44 <Carlita Corrales APRN - Last Filed: 12/07/24 20:45>
[2024-12-07 19:55] LABS: Hematocrit 39.5 % (37.0-47.0); Hemoglobin 12.8 g/dL (12.0-15.0); Immature Granulocyte Percent A 0.2 % (0-0.5); Lymphocytes Absolute Auto 1.35 K/mm3 (0.9-3.2); Mean Corpuscular HGB Conc 32.4 g/dl (32-36); Mean Corpuscular Hemoglobin 29.6 pg (26-34); Mean Corpuscular Volume 91.4 fl (80-100); Nucleated Red Blood Cells Absolute Auto 0.000 K/mm3 (0.0-0.012); Nucleated Red Blood Cells Perc 0.0 % (0.0-0.2); Platelet Count Result 211 k/mm3 (150-375); Red Blood Count 4.32 M/mm3 (4.2-5.4); White Blood Count 5.4 K/mm3 (4.5-10.0)
[2024-12-07 20:05] LABS: Anion Gap 7 mmol/L (4-12); Blood Urea Nitrogen 17 mg/dL (7-17); Calcium 9.2 mg/dL (8.4-10.2); Carbon Dioxide 24 mmol/L (22-30); Chloride 108 mmol/L (98-107); Estimated CRCL calculation 43 ml/min; Estimated Glomerular Filt Rate 58; Glucose 90 mg/dL (65-110); INR 3.2; Potassium 4.1 mmol/L (3.4-5.0); Prothrombin Time 31.8 Seconds (11.1-14.7); Sodium 139 mmol/L (137-145)
[2024-12-07 20:06] LABS: Partial Thromboplastin Time 53.1 Seconds (22.3-36.8)
[2024-12-07 20:50] VITALS: BP 124/80; PULSE 68; RESP 18; O2SAT 99
--- OUTSIDE RECORDS SUMMARY | 2024-12-07 20:58 | XMS_ITS | Clinical Summary ---
Author Organization [facility] Address [address] [place] [id number] Care Team Providers Care Manager Costing Name Role Phone Vidya Galeano NP Primary Care Provider [phone] Allergies Active Allergy Reactions Criticality Noted Date [...] Assurity Dual Pacemaker Dx; CHB. DOI 10/30/2022-Akilah. [place]. Chronic leads 09/15/2012-Dr Suarez implanted. [place] remote home monitor Q3 mo, Office pacer [...] Department Care Team Description 11/22/2024 Anticoagulation Visit [facility] Cardiology [address] [place] [address] Cassidy Keller RN H/O mechanical aortic valve replacement (Primary Dx) 11/06/2024 Anticoagulation Visit [facility] Cardiology [address] [place] [address] [place] [phone] Cassidy Keller RN H/O mechanical aortic valve replacement (Primary Dx) 10/25/2024 Orders Only [facility] Health Information Management [address] [place] [phone] Scanning, Provider 10/25/2024 Anticoagulation Visit [facility] Cardiology [address] [place] [address] [place] [phone] Kimberly Yip RN H/O mechanical aortic valve replacement (Primary Dx) 09/28/2024 Orders Only [facility] Health Information Management [address] [place] [phone] Scanning, Provider 09/28/2024 Anticoagulation Visit [facility] Cardiology [address] [place] [address] [place] [phone] Tunde Tovar RN H/O mechanical aortic valve [...] Alcoholism; Hypertension Sister Latoya Hypertension; Other Sister Latoay aneursym; Cause of : aneursym Relation Name [...] on file 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 Gender Identity Not on file Sexual Orientation [...] 2025 02/15/2020 Medical Devices Implanted Type Area Dietitian Teacher Device Identifier Shelf Expiration Date Model / Serial / Lot Pacemaker-04/17 Implanted:04/17 by Cassidy Spears (Quantity not on file) Pacemaker [employer] [facility] ACCENT 2210 / [id number] / Description:Atrial & Ventric ular leads replaced [...] 0.90 - 1.10 EXTERNAL LAB Blood Result [employer] Provider MD LAB BLOOD ORDERABLES Edit ed Result - Final Performing Organization Address [facility] Co de Phone Number EXTERNAL LAB * (ABNORMAL) Protime-INR (11/06/2024) INR 2.90(A) 0.90 - 1.10 EXTERNAL LAB Blood Result [employer] Provider MD LAB BLOOD ORDERABLES Edit ed Result - Final Performing Organization Address [facility] Co de Phone Number EXTERNAL LAB * SCAN - LABS (10/25/2024) Provider Scanning Final Result * (ABNORMAL) Protime-INR (10/24/2024) INR 1.70(A) 0.90 - 1.10 EXTERNAL LAB Blood Result [facility] Historical Provider MD LAB BLOOD ORDERABLES Ibeth l Result Performing Organization Address [facility] Co de Phone Number EXTERNAL LAB * SCAN - LABS (09/28/2024) Provider Scanning Final Result * (ABNORMAL) Protime-INR (09/28/2024) INR 1.90(A) 0.90 - 1.10 EXTERNAL LAB Blood 09/28/2024 us Historical Provider LAB BLOOD ORDERABLES Ibeth escobar Result EXTERNAL LAB from Last 3 Months Insurance [facility] HMO/PPO Address: [facility] [id number] [place] [address] Care Teams Manager Costing Relationship Specialty Start Date End Date Vidya Galeano NP PCP - General Nurse Practitioner 07/05/23
--- OUTSIDE RECORDS SUMMARY | 2024-12-07 20:58 | XMS_ITS | Encounter Summary ---
Author Organization [facility] Healthcare Address [address] [place] [address] Care Team Providers Care Test Clerk Name Role Phone Vidya Galeano NP Primary Care Provider Encounter Details Date Type Department Care Team (Late st Contact Info) Description 09/03/2024 Orders Only [facility] Health Information Management [address] [place] [phone] Scanning, Provider Social History Tobacco Use Types Packs/Day Years Used Date Smoking Tobacco: Never Smokeless Tobacco: Never Alcohol Use Standard Drinks/Week Comments No 0 (1 standard drink = 0.6 oz pur e alcohol) Comments Unknown Sex and Gender Information Value Date Recorded Sex Assigned at Not on file 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
--- OUTSIDE RECORDS SUMMARY | 2024-12-07 20:58 | XMS_ITS | Encounter Summary ---
Author Organization [facility] Healthcare Address [address] [place] [address] Care Team Providers Care Deputy Sheriff Civil Division Name Role Phone Vidya Galeano NP Primary Care Provider [phone] Encounter Details Date Type Department Care Team (Late st Contact Info) Description 03/14/2024 Orders Only [facility] Information Management [address] [place] [phone] Scanning, Provider Social History Tobacco Use Types Packs/Day Years Used Date Smoking Tobacco: Never Smokeless Tobacco: Never Alcohol Use Standard Drinks/Week Comments No 0 (1 standard drink = 0.6 oz pur e alcohol) Comments Unknown Sex and Gender Information Value Date Recorded Sex Assigned at Not on file 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
--- OUTSIDE RECORDS SUMMARY | 2024-12-07 20:58 | XMS_ITS | Encounter Summary ---
Author Organization [facility] Healthcare Address [address] [place] [address] Care Team Providers Care Affiliate Marketing Specialist Name Role Phone Vidya Galeano NP Primary Care Provider Encounter Details Date Type Department Care Team (Late st Contact Info) Description 10/25/2024 Orders Only [facility] Information [facility] [address] [place] [phone] Scanning, Provider Social History Tobacco Use Types Packs/Day Years Used Date Smoking Tobacco: Never Smokeless Tobacco: Never Alcohol Use Standard Drinks/Week Comments No 0 (1 standard drink = 0.6 oz pur e alcohol) Comments Unknown Sex and Gender Information Value Date Recorded Sex Assigned at Not on file Legal Sex Female 1:32 AM PIANO MOVER Gender Identity Not on file Sexual Orientation [...] on filedocumented in this encounter Care Teams Affiliate Marketing Specialist Relationship Specialty Start Date End Date Vidya Galeano NP PCP - General Nurse Practitioner 07/05/23 documented as of this encounter
--- OUTSIDE RECORDS SUMMARY | 2024-12-07 20:58 | XMS_ITS | Encounter Summary ---
Author Organization [facility] Address [address] [facility] [address] [place] [address] Care Team Providers Care Lumber Press Operator Name Role Phone Maxi Damian MD Primary Care Provider [phone] Vidya Galeano NP Primary Care Provider [phone] Encounter Details Date Type Department Care Team (Late st Contact Info) Description 09/01/2016 Orders Only [facility] ProviderLexy MD [address] [phone] Social History Tobacco Use Types Packs/Day Years Used Date Smoking Tobacco: Never Alcohol Use Standard Drinks/Week Comments No 0 (1 standard drink = 0.6 oz pur e alcohol) Comments Unknown Sex and Gender Information Value Date Recorded Sex Assigned at Not on file 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
--- OUTSIDE RECORDS SUMMARY | 2024-12-07 20:58 | XMS_ITS | Encounter Summary ---
Author Organization [facility] Healthcare Address [address] [place] [address] Care Team Providers Care Cane Flume Chute Operator Name Role Phone Vidya Galeano NP Primary Care Provider [phone] Encounter Details Date Type Department Care Team (Late st Contact Info) Description 03/20/2024 Orders Only [facility] Information Management [address] [place] [phone] Scanning, Provider Social History Tobacco Use Types Packs/Day Years Used Date Smoking Tobacco: Never Smokeless Tobacco: Never Alcohol Use Standard Drinks/Week Comments No 0 (1 standard drink = 0.6 oz pur e alcohol) Comments Unknown Sex and Gender Information Value Date Recorded Sex Assigned at Not on file 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
--- OUTSIDE RECORDS SUMMARY | 2024-12-07 20:58 | XMS_ITS | Encounter Summary ---
Author Organization [facility] Healthcare Address [address] [place] [address] Care Team Providers Care Critical Care Physician Name Role Phone Vidya Galeano NP Primary Care Provider [phone] Encounter Details Date Type Department Care Team (Late st Contact Info) Description 03/23/2024 Orders Only [facility] Health Information Management [address] [place] [phone] Scanning, Provider Social History Tobacco Use Types Packs/Day Years Used Date Smoking Tobacco: Never Smokeless Tobacco: Never Alcohol Use Standard Drinks/Week Comments No 0 (1 standard drink = 0.6 oz pur e alcohol) Comments Unknown Sex and Gender Information Value Date Recorded Sex Assigned at Not on file Legal Sex Female 1:32 AM CORN CUTTER Gender Identity Not on file Sexual Orientation [...] on filedocumented in this encounter Care Teams Critical Care Physician Relationship Specialty Start Date End Date Vidya Galeano NP PCP - General Nurse Practitioner 07/05/23 documented as of this encounter
--- OUTSIDE RECORDS SUMMARY | 2024-12-07 20:58 | XMS_ITS | Encounter Summary ---
Author Organization [facility] Address [address] [facility] [address] [place] [address] Care Team Providers Care Sagger Filler Name Role Phone Maxi Damian MD Primary Care Provider +- [phone] Maxi Damian MD Primary Care Provider + [phone] Vidya Galeano NP Primary Care Provider [phone] Encounter Details Date Type Department Care Team (Late st Contact Info) Description 06/02/2016 Orders Only [facility] ProviderLexy MD [address] [place] [address] Social History Tobacco Use Types Packs/Day Years Used Date Smoking Tobacco: Never Alcohol Use Standard Drinks/Week Comments No 0 (1 standard drink = 0.6 oz pur e alcohol) Comments Unknown Sex and Gender Information Value Date Recorded Sex Assigned at Not on file 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
--- OUTSIDE RECORDS SUMMARY | 2024-12-07 20:58 | XMS_ITS | Encounter Summary ---
Author Organization [facility] Address [address] [place] [address] Care Team Providers Care Application Project Leader Name Role Phone Maxi Damian MD Primary Care Provider [phone] Vidya Galeano NP Primary Care Provider [phone] Encounter Details Date Type Department Care Team (Late st Contact Info) Description 10/25/2022 Orders Only [facility] Health Information Management [address] [place] [address] Scanning, Provider Social History Tobacco Use Types Packs/Day Years Used Date Smoking Tobacco: Never Smokeless Tobacco: Never Alcohol Use Standard Drinks/Week Comments No 0 (1 standard drink = 0.6 oz pur e alcohol) Comments Unknown Sex and Gender Information Value Date Recorded Sex Assigned at Not on file Legal Sex 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
--- OUTSIDE RECORDS SUMMARY | 2024-12-07 20:58 | XMS_ITS | Encounter Summary ---
Author Organization [facility] Healthcare Address [address] [place] [address] Care Team Providers Care Tetryl Wringer Operator Name Role Phone Vidya Gaelano NP Primary Care Provider [phone] Encounter Details Date Type Department Care Team (Late st Contact Info) Description 09/28/2024 Orders Only [facility] Health Information Management [address] [place] [address] Scanning, Provider Social History Tobacco Use Types Packs/Day Years Used Date Smoking Tobacco: Never Smokeless Tobacco: Never Alcohol Use Standard Drinks/Week Comments No 0 (1 standard drink = 0.6 oz pur e alcohol) Comments Unknown Sex and Gender Information Value Date Recorded Sex Assigned at Not on file 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
--- OUTSIDE RECORDS SUMMARY | 2024-12-07 20:58 | XMS_ITS | Encounter Summary ---
Author Organization [facility] Healthcare Address [address] [place] [address] Care Team Providers Care Machine Operator Assistant Name Role Phone Vidya Galeano NP Primary Care Provider Encounter Details Date Type Department Care Team (Late st Contact Info) Description 07/27/2024 Orders Only [facility] Information Management [address] [place] [address] Scanning, Provider Social History Tobacco Use Types Packs/Day Years Used Date Smoking Tobacco: Never Smokeless Tobacco: Never Alcohol Use Standard Drinks/Week Comments No 0 (1 standard drink = 0.6 oz pur e alcohol) Comments Unknown Sex and Gender Information Value Date Recorded Sex Assigned at Not on file 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
== END 2024-12-07 20:59 | disposition home or self-care (01) ==
LOC: ANHED 20:56
PROVIDERS: Physician Assistant; Emergency Provider Registered Nurse; PCP Nurse Practitioner
DX: R51.9 Headache, unspecified (principal); R79.1 Abnormal coagulation profile; M19.90 Unspecified osteoarthritis, unspecified site; Z95.0 Presence of cardiac pacemaker; Z95.2 Presence of prosthetic heart valve; Z79.01 Long term (current) use of anticoagulants
CPT/HCPCS: 36415; 70450; 80048; 85025; 85610; 85730; 99284

== ENCOUNTER 2025-03-22 08:24 | Outpatient (CLI) | payer OTHER, SELFPAY ==
[2025-03-22 12:45] LABS: Hematocrit 41.5 % (37.0-47.0); Hemoglobin 13.4 g/dL (12.0-15.0); Immature Granulocyte Percent A 0.4 % (0-0.5); Lymphocytes Absolute Auto 1.53 K/mm3 (0.9-3.2); Mean Corpuscular HGB Conc 32.3 g/dl (32-36); Mean Corpuscular Hemoglobin 30.0 pg (26-34); Mean Corpuscular Volume 93.0 fl (80-100); Nucleated Red Blood Cells Absolute Auto 0.000 K/mm3 (0.0-0.012); Nucleated Red Blood Cells Perc 0.0 % (0.0-0.2); Platelet Count Result 216 k/mm3 (150-375); Red Blood Count 4.46 M/mm3 (4.2-5.4); White Blood Count 4.9 K/mm3 (4.5-10.0)
[2025-03-22 12:59] LABS: Alanine Aminotransferase 35 U/L (6-35); Albumin Level 4.4 g/dL (3.5-5.1); Alkaline Phosphatase 75 U/L (38-126); Anion Gap 7 mmol/L (4-12); Aspartate Amino Transferase 45 U/L (14-36); Bilirubin,Total 0.7 mg/dL (0.2-1.3); Blood Urea Nitrogen 17 mg/dL (7-17); Calcium 8.9 mg/dL (8.4-10.2); Carbon Dioxide 26 mmol/L (22-30); Chloride 106 mmol/L (98-107); Cholesterol 144 mg/dL (0-200); Estimated Glomerular Filt Rate 58; Glucose 81 mg/dL (65-110); HDL Direct 75 mg/dL; Potassium 4.1 mmol/L (3.4-5.0); Sodium 139 mmol/L (137-145); Total Protein 7.2 g/dL (6.3-8.2); Triglycerides 47 mg/dL (<150)
== END 2025-03-22 08:25 | disposition home or self-care (01) ==
LOC: ANHGOSHLAB 08:25
PROVIDERS: PCP Internal Medicine; Visit Provider Nurse Practitioner
DX: E78.2 Mixed hyperlipidemia (principal); E55.9 Vitamin D deficiency, unspecified; Z79.01 Long term (current) use of anticoagulants
CPT/HCPCS: 36415; 80053; 80061; 82306; 85025